=== PATIENT | female | born 2000 | race African-American/Black ===

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

== ENCOUNTER 2019-01-09 13:24 | Emergency (ER) | payer OTHER ==
[~2019-01-09] VITALS: Ht 157.5 cm; Wt 50.8 kg
[2019-01-09 13:47] VITALS: BP 119/73
[2019-01-09] MEDS ORDERED: IV NORMAL SALINE 1000ML BAG 1,000 ML IV ONE (15:45)
[2019-01-09] MEDS ORDERED: ALBU2.5V8 INH (16:05)
[2019-01-09] MEDS ORDERED: METH4TAB2 PO (16:05)
--- NOTE | 2019-01-09 16:06 | PHYS DOC ---
Past Medical History Past Medical History: Asthma Past Surgical History: Other Additional Past Surgical Histo: D&C Alcohol Use: None Drug Use: None Adult General Chief Complaint Chief Complaint: SORE THROAT HPI HPI Patient is a 18 year old female who presents with throat pain, cough, chills, nasal congestion and when she coughs there is a burning sensation for the last 3 days. She states she has not been taking any medications [id number]. Patient states she does have asthma has been using her inhaler more than usual. Review of Systems Review of Systems Constitutional: fever or chills [] Eyes: Denies change in visual acuity, redness, or eye pain [] HENT: nasal congestion or sore throat [] Respiratory: cough or shortness of breath [] Cardiovascular: No additional information not addressed in HPI [] GI: Denies abdominal pain, nausea, vomiting, bloody stools or diarrhea [] : Denies dysuria or hematuria [] Musculoskeletal: Denies back pain or joint pain [] Integument: Denies rash or skin lesions [] Neurologic: Denies headache, focal weakness or sensory changes [] All other systems were reviewed and found to be within normal limits, except as documented in this note. Current Medications Current Medications Current Medications Medications (Trade) Dose Ordered Sig/Kristie Start Time Stop Time Status Last Admin Dose Admin Sodium Chloride 1,000 ml @ 1,000 mls/hr 1X ONCE 01/09/19 15:45 01/09/19 16:44 Cancel Allergies Allergies Allergies Coded Allergies Type Severity Reaction Last Updated Verified No Known Drug Allergies 11/21/18 No Physical Exam Physical Exam Constitutional: Well developed, well nourished, no acute distress, non-toxic appearance. [] HENT: Normocephalic, atraumatic, bilateral external ears normal, oropharynx moist, no oral exudates, nose normal. [] Eyes: PERRLA, EOMI, conjunctiva normal, no discharge. [] Neck: Normal range of motion, no tenderness, supple, no stridor. [] Cardiovascular:Heart rate regular rhythm, no murmur [] Lungs & Thorax: Bilateral breath sounds clear to auscultation [] Abdomen: Bowel sounds normal, soft, no tenderness, no masses, no pulsatile masses. [] Skin: Warm, dry, no erythema, no rash. [] Back: No tenderness, no CVA tenderness. [] Extremities: No tenderness, no cyanosis, no clubbing, ROM intact, no edema. [] Neurologic: Alert and oriented X 3, normal motor function, normal sensory function, no focal deficits noted. [] Psychologic: Affect normal, judgement normal, mood normal. Normal Physical Exam [] Current Patient Data Vital Signs Vital Signs Date Time Temp Pulse Resp B/P (MAP) Pulse Ox O2 Delivery O2 Flow Rate FiO2 01/09/19 13:47 98.5 83 16 119/73 (88) 98 Room Air 98.5 Lab Values Laboratory Tests Test 01/09/19 15:07 01/09/19 15:35 POC Urine HCG, Qualitative Hcg negative (Negative) Influenza Type A Antigen Negative (NEGATIVE) Influenza Type B Antigen Negative (NEGATIVE) EKG EKG [] Radiology/Procedures Radiology/Procedures [] Course & Med Decision Making Course & Med Decision Making Patient is a 18 year old female who presents with throat pain, cough, chills, nasal congestion and when she coughs there is a burning sensation for the last 3 days. She states she has not been taking any medications [id number]. Patient states she does have asthma has been using her inhaler more than usual. Alert and oriented. Speaks in full clear sentences. Throat is pink without exudates or swelling. Bilateral tympanic is pearly white. Lungs are clear to auscultation in all lobes. Patient denies abdominal pain, nausea, vomiting, diarrhea, headache, dizziness. Vital signs within Normal limits and she is afebrile. Rapid strep is negative. Influenza negative. Dragon Disclaimer Dragon Disclaimer This electronic medical record was generated, in whole or in part, using a voice recognition dictation system. Departure Departure Impression: Primary Impression: Cough Additional Impression: Sore throat Disposition: 01 HOME, SELF-CARE Condition: STABLE Referrals: Lanny RICHEY MD (PCP) Patient Instructions: Cough, Adult, Sore Throat Additional Instructions: Follow-up her primary care doctor if not getting better. Take medication as prescribed. Take Tylenol or Ibuprofen for pain or fever every 6 hours. Scripts Albuterol Sulfate (Proair Hfa) 8.5 Gm Hfa.aer.ad 1 PUFF INH PRN Q6HRS PRN for SHORTNESS OF BREATH, #1 INHALER Prov: KIT MARTIN ACADEMIC SPECIALIST 01/09/19 Methylprednisolone (MEDROL) 4 Mg Tab.ds.pk 1 PKG PO UD, #1 PKG Prov: KIT MARTIN APRN 01/09/19 Problem Qualifiers KIT MARTIN APRN Jan 09, 2019 16:06
[2019-01-09 16:20] LABS: INFLUENZA A PATIENT NEGATIVE (NEGATIVE); INFLUENZA B PATIENT NEGATIVE (NEGATIVE)
== END 2019-01-09 16:42 | disposition home or self-care (01) ==
LOC: ER 13:24
DX: J02.9 Acute pharyngitis, unspecified (principal); R05 Cough; R06.02 Shortness of breath; R68.83 Chills (without fever); R20.8 Other disturbances of skin sensation; J45.909 Unspecified asthma, uncomplicated
CPT/HCPCS: 81025; 87070; 87804; 87880; 99283

== ENCOUNTER 2019-03-22 18:16 | Emergency (ER) | payer OTHER ==
[~2019-03-22] VITALS: Ht 157.5 cm; Wt 50.8 kg
[~2019-03-22 18:16] MED LIST changes: +METH4TAB2 PO
[2019-03-22 19:32] LABS: BILIRUBIN,URINE NEGATIVE (NEG); CLARITY,URINE CLEAR; COLOR,URINE YELLOW; NITRITE,URINE NEGATIVE (NEG); PH,URINE 5.5; PROTEIN,URINE NEGATIVE (NEG-TRACE); UROBILINOGEN,URINE 0.2 mg/dL (0.2 mg/dL)
[2019-03-22 19:42] LABS: BACTERIA,URINE MOD /HPF (0-FEW); RBC,URINE OCC /HPF (0-2); SQUAMOUS EPITHELIAL CELL,UR MOD /LPF
[2019-03-22] MEDS ORDERED: METR500T PO (19:54)
[2019-03-22] MEDS ORDERED: CEPH500T PO (19:54)
--- NOTE | 2019-03-22 19:55 | PHYS DOC ---
Past Medical History Past Medical History: Asthma (JEANETTENICKI EVER) Past Surgical History: Other Additional Past Surgical Histo: D&C (JEANETTENICKI PEDIATRIC NURSE PRACTITIONER) Alcohol Use: None Drug Use: None (NICKI REID APRN) Adult General Chief Complaint Chief Complaint: VAGINAL PROBLEM [facility] HPI Patient is a 18 year old female who presents with vaginal discharge for 1-1/2 months. Patient states she has been trying [id number] miconazole inserts with no relief. Denies any chance she is though she states she doesn't use anything for protection (NICKI REID APRN) Review of Systems Review of Systems Constitutional: Denies fever or chills [] Eyes: Denies change in visual acuity, redness, or eye pain [] HENT: Denies nasal congestion or sore throat [] Respiratory: Denies cough or shortness of breath [] Cardiovascular: No additional information not addressed in HPI [] GI: Reports VAGINAL discharge. Denies abdominal pain, nausea, vomiting, bloody stools or diarrhea [] : Denies dysuria or hematuria [] Musculoskeletal: Denies back pain or joint pain [] Integument: Denies rash or skin lesions [] Neurologic: Denies headache, focal weakness or sensory changes [] All other systems were reviewed and found to be within normal limits, except as documented in this note. (NICKI REID APRN) Allergies Allergies Allergies Coded Allergies Type Severity Reaction Last Updated Verified No Known Drug Allergies 11/21/18 No (MARIAMA APARICIO DO) Physical Exam Physical Exam Constitutional: Well developed, well nourished, no acute distress, non-toxic appearance. [] HENT: Normocephalic, atraumatic, bilateral external ears normal, oropharynx mois t, no oral exudates, nose normal. [] Eyes: PERRLA, EOMI, conjunctiva normal, no discharge. [] Neck: Normal range of motion, no tenderness, supple, no stridor. [] Cardiovascular:Heart rate regular rhythm, no murmur [] Lungs & Thorax: Bilateral breath sounds clear to auscultation [] Abdomen: Bowel sounds normal, soft, no tenderness, no masses, no pulsatile masses. [] Pelvic exam External pelvic appears normal, cervix suspicious, closed, no CMT, no adnexal tenderness. Trace amount of white discharge in the vaginal vault. Skin: Warm, dry, no erythema, no rash. [] Back: No tenderness, no CVA tenderness. [] Extremities: No tenderness, no cyanosis, no clubbing, ROM intact, no edema. [] Neurologic: Alert and oriented X 3, normal motor function, normal sensory function, no focal deficits noted. [] Psychologic: Affect normal, judgement normal, mood normal. [] (NICKI REID APRN) Current Patient Data Vital Signs Vital Signs Date Time Temp Pulse Resp B/P (MAP) Pulse Ox O2 Delivery O2 Flow Rate FiO2 03/22/19 20:32 72 14 109/71 (84) 99 Room Air 03/22/19 18:47 98.2 98.2 (MARIAMA APARICIO DO) Lab Values Laboratory Tests Test 03/22/19 18:55 03/22/19 18:57 Urine Collection Type Void Urine Color Yellow Urine Clarity Clear Urine pH 5.5 Urine Specific [place] 1.025 Urine Protein Negative mg/dL (NEG-TRACE) Urine Glucose (UA) Negative mg/dL (NEG) Urine Ketones (Stick) Negative mg/dL (NEG) Urine Blood Negative (NEG) Urine Nitrite Negative (NEG) Urine Bilirubin Negative (NEG) Urine Urobilinogen Dipstick 0.2 mg/dL (0.2 mg/dL) Urine Leukocyte Esterase Small (NEG) Urine RBC Occ /HPF (0-2) Urine WBC 1-4 /HPF (0-4) Urine Squamous Epithelial Cells Mod /LPF Urine Bacteria Mod /HPF (0-FEW) Urine Mucus Marked /LPF POC Urine HCG, Qualitative Hcg positive (Negative) Microbiology 03/22/19 Wet Prep - Final, Complete (MARIAMA APARICIO DO) EKG EKG [] (NICKI REID APRN) Radiology/Procedures Radiology/Procedures [] (NICKI REID APRN) Course & Med Decision Making Course & Med Decision Making Pertinent Labs and Imaging studies reviewed. (See chart for details) This is a 18-year-old female patient presenting to the ED today complaining of vaginal discharge for 1-1/2 months. Positive urine hCG. Wet prep noted for altered elba, urine analysis is noted for small amount of leukocytes. Patient will be discharged on cephalexin and Flagyl. Provided OB for follow-up. (NICKI REID APRN) Dragon Disclaimer Dragon Disclaimer This electronic medical record was generated, in whole or in part, using a voice recognition dictation system. (NICKI REID APRN) Departure Departure Impression: Primary Impression: Urinary tract infection Additional Impressions: Bacterial vaginosis Disposition: HOME, SELF-CARE Condition: STABLE Referrals: NO PCP (PCP) ZULEIMA MORGAN Jr, MD follow up in 1 week Patient Instructions: Bacterial Vaginosis, Urinary Tract Infection Additional Instructions: You were evaluated in the emergency room, your test is positive. You have bacterial vaginosis and urinary tract infection. We put you on antibiotics take them as prescribed. Start Taking vitamins and follow-up with the provided FUSION OPERATOR. Scripts Cephalexin (CEPHALEXIN) 500 Mg Tablet 1 TAB PO BID, #14 TAB Prov: NICKI REID APRN 03/22/19 Metronidazole (FLAGYL) 500 Mg Tablet 1 TAB PO BID, #14 TAB Prov: NICKI REID APRN 03/22/19 Attending Signature Attending Signature I have reviewed the PA/EXHAUST AND MUFFLER FITTER's note and plan of care. I was available for consultation as needed during the patient's visit in the emergency department. I agree with the clinical impression, plan, and disposition. (MARIAMA APARICIO DO) Problem Qualifiers Primary Impression: Urinary tract infection Urinary tract infection type: site unspecified Hematuria presence: without hematuria Qualified Codes: N39.0 - Urinary tract infection, site not specified Additional Impressions: Weeks of gestation: less than 8 weeks Qualified Codes: Z3A.01 - Less than 8 weeks gestation of NICKI REID APRN March 22, 2019 19:54 MARIAMA APARICIO DO Mar 23, 2019 04:01
[2019-03-22 20:32] VITALS: BP 109/71
[2019-03-25 15:13] LABS: GC PROBE Negative (Negative)
== END 2019-03-22 20:32 | disposition home or self-care (01) ==
LOC: ER 18:16
DX: O23.31 Infections of other parts of urinary tract in pregnancy, first trimester (principal); O99.511 Diseases of the respiratory system complicating pregnancy, first trimester; Z3A.01 Less than 8 weeks gestation of pregnancy
CPT/HCPCS: 81001; 81025; 87491; 87591; 99284; Q0111; 99283

== ENCOUNTER 2019-03-29 21:42 | Emergency (ER) | payer OTHER ==
[~2019-03-29] VITALS: Ht 157.5 cm; Wt 51.7 kg
[~2019-03-29 21:42] MED LIST changes: +METR500T PO
[2019-03-29 22:00] VITALS: BP 121/65
--- NOTE | 2019-03-29 23:10 | PHYS DOC ---
Past Medical History Past Medical History: No Pertinent History, Asthma Past Surgical History: Other Additional Past Surgical Histo: D&C Additional Information: non smoker Alcohol Use: None Drug Use: None Adult General Chief Complaint Chief Complaint: VAGINAL PROBLEM HPI HPI Patient is a 18 year old female who states that she has been having vaginal discharge, and itching for a month. The patient was seen here last week and diagnosed with a UTI and Bacterial vaginosis and placed on Flagyl and Keflex. Patient states that the symptoms got better for a couple of days and then started again. The patient states that she is and had her first OB appointment 2 days ago and had STD testing performed at that time. Denies any pain currently. Review of Systems Review of Systems Constitutional: Denies fever or chills [] Eyes: Denies change in visual acuity, redness, or eye pain [] HENT: Denies nasal congestion or sore throat [] Respiratory: Denies cough or shortness of breath [] Cardiovascular: No additional information not addressed in HPI [] GI: Denies abdominal pain, nausea, vomiting, bloody stools or diarrhea [] : Denies dysuria or hematuria Gynecology: Reports Vaginal itching and discharge. Musculoskeletal: Denies back pain or joint pain [] Integument: Denies rash or skin lesions [] Neurologic: Denies headache, focal weakness or sensory changes [] Endocrine: Denies polyuria or polydipsia [] Complete systems were reviewed and found to be within normal limits, except as documented in this note. Allergies Allergies Allergies Coded Allergies Type Severity Reaction Last Updated Verified No Known Drug Allergies 11/21/18 No Physical Exam Physical Exam Constitutional: Well developed, well nourished, no acute distress, non-toxic appearance. [] HENT: Normocephalic, atraumatic, bilateral external ears normal, oropharynx moist, no oral exudates, nose normal. [] Eyes: PERRLA, EOMI, conjunctiva normal, no discharge. [] Neck: Normal range of motion, no tenderness, supple, no stridor. [] Cardiovascular:Heart rate regular rhythm, no murmur [] Lungs & Thorax: Bilateral breath sounds clear to auscultation [] Abdomen: Bowel sounds normal, soft, no tenderness, no masses, no pulsatile masses. [] Skin: Warm, dry, no erythema, no rash. [] Back: No tenderness, no CVA tenderness. [] Extremities: No tenderness, no cyanosis, no clubbing, ROM intact, no edema. [] Neurologic: Alert and oriented X 3, normal motor function, normal sensory function, no focal deficits noted. [] Psychologic: Affect normal, judgement normal, mood normal. [] Pelvic Exam: External exam is normal and without rash, No CMT, OS is closed, small amounts of white discharge, uterus NTTP, No adnexal masses or tenderness noted. Current Patient Data Vital Signs Vital Signs Date Time Temp Pulse Resp B/P (MAP) Pulse Ox O2 Delivery O2 Flow Rate FiO2 03/29/19 22:00 98.4 86 16 121/65 (83) 100 Room Air 98.4 Lab Values Laboratory Tests Test 03/29/19 23:25 Urine Collection Type Unknown Urine Color Ramila Urine Clarity Turbid Urine pH 6.0 Urine Specific [place] >=1.030 Urine Protein Negative mg/dL (NEG-TRACE) Urine Glucose (UA) Negative mg/dL (NEG) Urine Ketones (Stick) Trace mg/dL (NEG) Urine Blood Negative (NEG) Urine Nitrite Negative (NEG) Urine Bilirubin Small (NEG) Urine Urobilinogen Dipstick 0.2 mg/dL (0.2 mg/dL) Urine Leukocyte Esterase Moderate (NEG) Urine RBC 0 /HPF (0-2) Urine WBC 1-4 /HPF (0-4) Urine Squamous Epithelial Cells Mod /LPF Urine Bacteria Few /HPF (0-FEW) Urine Mucus Mod /LPF EKG EKG [] Radiology/Procedures Radiology/Procedures [] Course & Med Decision Making Course & Med Decision Making Pertinent Labs and Imaging studies reviewed. (See chart for details) Will get urine sample, perform pelvic exam. Patient is agreeable. Will not get additional STD testing as she has testing pending at her BOX OFFICE MANAGER. Will place on Clotrimazole for Vulvovaginal Candidiasis. Will write paper script for Clotrimazole 1% Cream 5 grams intravaginally daily for 7 days. Patient is agreeable. Urine shows moderate leukocytes. Was on Keflex. Will put her on Macrobid. Patient is agreeable. Dragon Disclaimer Dragon Disclaimer This electronic medical record was generated, in whole or in part, using a voice recognition dictation system. Departure Departure Impression: Primary Impression: Vulvovaginal candidiasis Additional Impression: Urinary tract infection Disposition: HOME, SELF-CARE Condition: STABLE Referrals: NO PCP (PCP) Patient Instructions: Candidal Vulvovaginitis, [id number], - Urinary Tract Infection Additional Instructions: Follow up with your BOX OFFICE MANAGER as needed. Return to ER as needed. Take medication per label instructions. Scripts Nitrofurantoin Monohyd/M-Cryst (MACROBID 100 MG CAPSULE) 100 Mg Capsule 1 CAP PO BID for 7 Days, #14 CAP Prov: MARIAMA RUSSO APRN 03/29/19 Problem Qualifiers Additional Impression: Urinary tract infection Urinary tract infection type: acute cystitis Hematuria presence: without hematuria Qualified Codes: N30.00 - Acute cystitis without hematuria MARIAMA RUSSO APRN Mar 29, 2019 23:10
[2019-03-29 23:31] LABS: BILIRUBIN,URINE SMALL (NEG); CLARITY,URINE TURBID; COLOR,URINE AMBER; NITRITE,URINE NEGATIVE (NEG); PROTEIN,URINE NEGATIVE (NEG-TRACE); UROBILINOGEN,URINE 0.2 mg/dL (0.2 mg/dL)
[2019-03-29 23:34] LABS: SQUAMOUS EPITHELIAL CELL,UR MOD /LPF
[2019-03-29 23:36] LABS: BACTERIA,URINE FEW /HPF (0-FEW); RBC,URINE 0 /HPF (0-2)
[2019-03-29] MEDS ORDERED: NITR100C62 PO (23:47)
== END 2019-03-29 23:55 | disposition home or self-care (01) ==
LOC: ER 21:42
DX: O23.11 Infections of bladder in pregnancy, first trimester (principal); O98.811 Other maternal infectious and parasitic diseases complicating pregnancy, first trimester; B37.41 Candidal cystitis and urethritis; O99.511 Diseases of the respiratory system complicating pregnancy, first trimester; J45.909 Unspecified asthma, uncomplicated; Z3A.01 Less than 8 weeks gestation of pregnancy
CPT/HCPCS: 81001; 99283

== ENCOUNTER 2019-04-14 21:09 | Emergency (ER) | payer OTHER ==
[~2019-04-14] VITALS: Ht 157.5 cm; Wt 51.7 kg
[~2019-04-14 21:09] MED LIST changes: +NITR100C62 PO
[2019-04-14 21:38] VITALS: BP 119/67
[2019-04-14 21:47] LABS: BILIRUBIN,URINE NEGATIVE (NEG); CLARITY,URINE CLOUDY; COLOR,URINE YELLOW; NITRITE,URINE NEGATIVE (NEG); PROTEIN,URINE 100 mg/dL (NEG-TRACE)
[2019-04-14 22:00] LABS: BACTERIA,URINE 0 /HPF (0-FEW); RBC,URINE >40 /HPF (0-2); SQUAMOUS EPITHELIAL CELL,UR FEW /LPF; WBC,URINE TNTC /HPF (0-4)
--- NOTE | 2019-04-14 23:17 | PHYS DOC ---
Past Medical History Past Medical History: Asthma, UTI Past Surgical History: Other Additional Past Surgical Histo: D&C Alcohol Use: None Drug Use: None Adult General Chief Complaint Chief Complaint: PELVIC PAIN HPI HPI 18-year-old female presents to ER for complaints of dysuria. Patient states she is 7 weeks 2 days 2 para 0. She reports she had appointment with Dr. Villalobos on Monday. Patient states today she started having dysuria. She denies any clots or tissue. Currently she denies abdominal pain, back pain, or nausea. She reports appetite has been regular denies any vomiting or diarrhea episodes. She denies fever. Review of Systems Review of Systems Constitutional: Denies fever or chills [] Eyes: Denies change in visual acuity, redness, or eye pain [] HENT: Denies nasal congestion or sore throat [] Respiratory: Denies cough or shortness of breath [] Cardiovascular: No additional information not addressed in HPI [] GI: Denies abdominal pain, nausea, vomiting, bloody stools or diarrhea [] : Reports dysuria w/blood on toilet paper after she wiped tonight- denies clots/tissue Musculoskeletal: Denies back pain or joint pain [] Integument: Denies rash or skin lesions [] Neurologic: Denies headache, focal weakness or sensory changes [] Endocrine: Denies polyuria or polydipsia [] All other systems were reviewed and found to be within normal limits, except as documented in this note. Current Medications Current Medications Current Medications Medications (Trade) Dose Ordered Sig/Kristie Start Time Stop Time Status Last Admin Dose Admin Cephalexin HCl (Keflex) 500 mg 1X ONCE 04/15/19 02:00 04/15/19 02:01 DC 04/15/19 02:02 500 MG Allergies Allergies Allergies Coded Allergies Type Severity Reaction Last Updated Verified No Known Drug Allergies 11/21/18 No Physical Exam Physical Exam Constitutional: Well developed, well nourished, no acute distress, non-toxic appearance. [] HENT: Normocephalic, atraumatic, oropharynx moist, nose normal. [] Eyes: Pupils equal, conjunctiva normal, no discharge. [] Neck: Normal range of motion, no tenderness, supple, no stridor. [] Cardiovascular: Heart rate regular rhythm, no murmur [] Lungs & Thorax: Bilateral breath sounds clear to auscultation- resp. equal/nonlabored Abdomen: Bowel sounds normal, soft- no distention/rigidity, no tenderness, no masses, no pulsatile masses. [] Skin: Warm, dry, no erythema, no rash. [] Back: No tenderness, no CVA tenderness. [] Extremities: No tenderness, no cyanosis, no clubbing, ROM intact, no edema. [] Neurologic: Alert and oriented X 3, normal motor function, normal sensory function, no focal deficits noted. [] Psychologic: Affect normal, judgement normal, mood normal. [] Current Patient Data Vital Signs Vital Signs Date Time Temp Pulse Resp B/P (MAP) Pulse Ox O2 Delivery O2 Flow Rate FiO2 04/14/19 21:38 98.6 87 16 119/67 (84) 100 Room Air 98.6 Lab Values Laboratory Tests Test 04/14/19 21:12 04/15/19 00:45 Urine Collection Type Unknown Urine Color Yellow Urine Clarity Cloudy Urine pH 7.0 Urine Specific [place] 1.025 Urine Protein 100 mg/dL (NEG-TRACE) Urine Glucose (UA) Negative mg/dL (NEG) Urine Ketones (Stick) Negative mg/dL (NEG) Urine Blood Large (NEG) Urine Nitrite Negative (NEG) Urine Bilirubin Negative (NEG) Urine Urobilinogen Dipstick 1.0 mg/dL (0.2 mg/dL) Urine Leukocyte Esterase Large (NEG) Urine RBC >40 /HPF (0-2) Urine WBC Tntc /HPF (0-4) Urine Squamous Epithelial Cells Few /LPF Urine Bacteria 0 /HPF (0-FEW) White Blood Count 6.5 x10^3/uL (4.0-11.0) Red Blood Count 4.56 x10^6/uL (3.50-5.40) Hemoglobin 12.9 g/dL (12.0-15.5) Hematocrit 38.1 % (36.0-47.0) Mean Corpuscular Volume 84 fL (79-100) Mean Corpuscular Hemoglobin 28 pg (25-35) Mean Corpuscular Hemoglobin Concent 34 g/dL (31-37) Red Cell Distribution Width 17.0 % (11.5-14.5) H Platelet Count 239 x10^3/uL (140-400) Neutrophils (%) (Auto) 58 % (31-73) Lymphocytes (%) (Auto) 30 % (24-48) Monocytes (%) (Auto) 8 % (0-9) Eosinophils (%) (Auto) 3 % (0-3) Basophils (%) (Auto) 1 % (0-3) Neutrophils # (Auto) 3.8 x10^3uL (1.8-7.7) Lymphocytes # (Auto) 2.0 x10^3/uL (1.0-4.8) Monocytes # (Auto) 0.5 x10^3/uL (0.0-1.1) Eosinophils # (Auto) 0.2 x10^3/uL (0.0-0.7) Basophils # (Auto) 0.0 x10^3/uL (0.0-0.2) Maternal Serum HCG Beta Subunit 86890 mIU/mL (0-5) H Sodium Level 136 mmol/L (136-145) Potassium Level 3.6 mmol/L (3.5-5.1) Chloride Level 103 mmol/L (98-107) Carbon Dioxide Level 25 mmol/L (21-32) Anion Gap 8 (6-14) Blood Urea Nitrogen 6 mg/dL (7-20) L Creatinine 0.6 mg/dL (0.6-1.0) Estimated GFR (Cockcroft-Gault) 155.8 Glucose Level 93 mg/dL (70-99) Calcium Level 8.9 mg/dL (8.5-10.1) Laboratory Tests 04/15/19 00:45 Laboratory Tests 04/15/19 00:45 EKG EKG [] Radiology/Procedures Radiology/Procedures Pelvic Exam: KAT Wood Turner present 0040 External Genitalia: Normal Skin- no rash/lesions Speculum: Normal vaginal mucosa, white thin vaginal discharge in vaginal vault- cervical os closed. No blood/clots/tissue in vault Course & Med Decision Making Course & Med Decision Making Pertinent Labs and Imaging studies reviewed. (See chart for details) On 11/21/18 patient had blood type obtained showing her to be AB neg. was discussed with patient and his she reported vaginal bleeding so will order Rhogham. Was discussed with patient she does not recall having Rhogham. RN at bedside to obtain labs and she is calling in lab to obtain T&C for Rhogham. 0150: Called [facility] and there was a miscommunication and pt's T&C didn't get drawn as of yet. This was discussed with patient- she is wanting to be discharged from the hospital without further observation denying any vaginal bleeding since ultrasound or pelvic. Patient had no visible blood on pelvic exam and cervical os was closed. She is denying any symptoms. She is nontoxic in appearance. She plans to call Dr. Villalobos's office in the morning and follow-up with his office stating she would have them administer Rhogham. Lab results were discussed with pt- [place] [id number]. H&H stable. UA with infection and lg blood- this was discussed with her. Dose of Keflex was provided and Rx will be provided with d/c paperwork. Education provided on signs and symptoms to return to ER. Discharge instructions were discussed. Pt advised on strict pelvic rest. Dragon Disclaimer Dragon Disclaimer This electronic medical record was generated, in whole or in part, using a voice recognition dictation system. Departure Departure Impression: Primary Impression: Urinary tract infection Additional Impression: Threatened miscarriage in early Disposition: 01 HOME, SELF-CARE Condition: STABLE Referrals: Lanny RICHEY MD (PCP) Patient Instructions: Pelvic Rest, Threatened Miscarriage, Urinary Tract Infection Additional Instructions: It is very important for you to follow-up with Dr. Villalobos's office in the morning as you didn't want to wait in the Emergency Department for the Rhogham. Drink plenty of fluids. Strict pelvic rest do not insert anything into the vagina. Scripts Cephalexin (KEFLEX) 500 Mg Capsule 1 CAP PO BID, #14 CAP 0 Refills Prov: AVNI QIU APRN 04/15/19 Problem Qualifiers AVNI QIU APRN Apr 14, 2019 23:16
--- NOTE | 2019-04-15 00:29 | RAD ---
Obstetric pelvic ultrasound 04/15/2019 INDICATION: Pelvic pain and bleeding. 7 weeks 2 day . COMPARISON: None available. TECHNIQUE: Sonographic evaluation of the pelvis was performed utilizing grayscale and color Doppler. Transabdominal and transvaginal imaging was performed. Spectral waveform analysis was utilized for interrogation of the ovaries. FINDINGS: Uterus measures 8.3 x 6.1 x 4.2 cm. Uterus is retroverted. A single intrauterine gestation is identified with crown-rump length measuring 1.3 cm compatible with a gestational age of 7 weeks and 4 days. heart tones measure 162 bpm. Yolk sac and gestational sac are visualized. There is a small subchorionic hemorrhage. Right ovary measures 2.3 x 1.3 x 1.2 cm. Left ovary measures 3.7 x 2.1 x 2.0 cm. Arterial and venous waveform identified bilaterally at the time of imaging. Corpus luteal cyst is identified in the left ovary measuring 2.1 x 1.5 x 1.5 cm. There is no free fluid within the pelvis. IMPRESSION: 1. Single viable intrauterine gestation is identified with crown-rump length compatible with a gestational age of 7 weeks 4 days which is concordant with provided gestational age. heart tones measure 162 bpm. Small subchorionic hemorrhage. If there is persistent clinical concern, short-term follow-up beta hCG and pelvic ultrasound may be of benefit. 2. Corpus luteal cyst is identified in the left ovary measuring 2.1 cm. Electronically signed by: Emily Grewal MD (04/15/2019 12:26 AM) [facility]
[2019-04-15 00:55] LABS: BASO % 1 % (0-3); EOS # 0.2 x10^3/uL (0.0-0.7); EOS % 3 % (0-3); HEMATOCRIT 38.1 % (36.0-47.0); HEMOGLOBIN 12.9 g/dL (12.0-15.5); LYMPH % 30 % (24-48); MEAN CORPUSCULAR HEMOGLOBIN 28 pg (25-35); MEAN CORPUSCULAR HGB CONC 34 g/dL (31-37); MEAN CORPUSCULAR VOLUME 84 fL (79-100); MONO # 0.5 x10^3/uL (0.0-1.1); MONO % 8 % (0-9); NEUT # 3.8 x10^3uL (1.8-7.7); NEUT % 58 % (31-73); PLATELET COUNT 239 x10^3/uL (140-400); RED BLOOD COUNT 4.56 x10^6/uL (3.50-5.40); WHITE BLOOD COUNT 6.5 x10^3/uL (4.0-11.0)
[2019-04-15 01:04] LABS: CALCIUM 8.9 mg/dL (8.5-10.1); CREATININE 0.6 mg/dL (0.6-1.0); GFR 155.8; POTASSIUM 3.6 mmol/L (3.5-5.1)
[2019-04-15] MEDS: CEPHALEXIN 250 MG CAPSULE. PO ONE (02:02)
[2019-04-15] MEDS ORDERED: CEPH-264 PO (02:13)
== END 2019-04-15 02:18 | disposition home or self-care (01) ==
LOC: ER 21:09
DX: O20.0 Threatened abortion (principal); O23.41 Unspecified infection of urinary tract in pregnancy, first trimester; O99.511 Diseases of the respiratory system complicating pregnancy, first trimester; J45.909 Unspecified asthma, uncomplicated; Z3A.01 Less than 8 weeks gestation of pregnancy
CPT/HCPCS: 36415; 76801; 76817; 80048; 81001; 84702; 85025; 87086; 99285-25

== ENCOUNTER 2019-10-08 16:47 | Observation (INO) | payer MEDICAID ==
[~2019-10-08 16:47] MED LIST changes: +CEPH-264 PO
[2019-10-08] MEDS ORDERED: IV RINGERS,LACTATED 1000ML 1,000 ML IV SCH (16:59)
--- NOTE | 2019-10-09 07:57 | RAD ---
Biophysical profile: Clinical indications: Oligohydramnios. Findings: A single intrauterine is present in the cephalic position. heart rate is 158. breathing movements: 2. motion: 2. tone: 2. Amniotic fluid volume: 0. Therefore, the biophysical profile score is 6 out of 8. Cervical length-not visualized. CARLOS using the 4 quadrant method is 4.5 cm. Impression: Biophysical profile score is 6 out of 8. Oligohydramnios. Electronically signed by: Luis Miguel Toure MD (10/09/2019 7:53 AM) [facility]
== END 2019-10-08 18:15 | disposition home or self-care (01) ==
LOC: 3 SO LND 16:47
PROVIDERS: ADMIT Obstetrics & Gynecology; ATTEND Obstetrics & Gynecology
DX: O36.5930 Maternal care for other known or suspected poor fetal growth, third trimester, not applicable or unspecified (principal); Z3A.32 32 weeks gestation of pregnancy
CPT/HCPCS: 76819; G0378; G0379; 59025

== ENCOUNTER 2019-10-11 19:35 | Observation (INO) | payer MEDICAID ==
[2019-10-11] MEDS ORDERED: MAG HYDROX/ALUMINUM HYD/SIMETH 30 ML ORAL.SUSP PO PRN (19:45)
[2019-10-11] MEDS ORDERED: IV RINGERS,LACTATED 1000ML 1,000 ML IV PRN (19:45)
[2019-10-11] MEDS ORDERED: ACETAMINOPHEN 325 MG TABLET. PO PRN (19:45)
--- NOTE | 2019-10-12 09:56 | PDOC1 ---
OB - History Hx of Present Care: Good Care Ultrasounds: Abnormal US findings (IUGR and BPP 6/10 yesterday) Obstetrical Complications: Growth Restriction Medical Complications: None Past Family/Social History * Past Medical, Surgical, Family and Obstetric Histories reviewed from chart. Rubella: Immune RPR/VDRL: Negative GBS Status: Unknown HBsAG: Negative OB - Chief Complaint & HPI Date of Admission: Date of Admission: Oct 11, 2019 at 19:35 Chief Complaint/History : 1 Para: 0 EGA: 33 Reason for admission: observation Admission Nurse Assessment Rev: Yes OB - Admission Exam Physical Exam HEENT: Normal Heart: Regular Rate Lungs: Clear, Equal Abdomen: Gravid, Non tender, Soft Extremities: Edema Reflexes: Normal Cervical Dilatation: None Effacement: 0% Station: Ballotable Membranes: Intact Heart Rate: Normal Accelerations: Accelerations Present Contractions on Admission: None Text A: 33 wks IUP Previous BPP 6/10 P: Observation for NST and repeat BPP. ZULEIMA MORGAN Jr, MD Oct 12, 2019 09:56
--- NOTE | 2019-10-12 10:52 | RAD ---
Examination: Ultrasound biophysical profile HISTORY: History of failed biophysical profile COMPARISON: 10/08/2019. FINDINGS: Single living intrauterine identified with heart rate of 153 bpm. motion 2 /2 tone 2 / 2 Amniotic fluid volume 2/2 breathing movements 0/2 Amniotic fluid index is 7 cm. IMPRESSION: 1. Biophysical profile score is 6 out of 8. Amniotic fluid index 7 cm. Electronically signed by: Antolin Graham MD (10/12/2019 10:49 AM) [facility]
== END 2019-10-12 11:05 | disposition home or self-care (01) ==
LOC: 3 SO LND 19:35
PROVIDERS: ADMIT Obstetrics & Gynecology; ATTEND Obstetrics & Gynecology
DX: O36.5930 Maternal care for other known or suspected poor fetal growth, third trimester, not applicable or unspecified (principal); Z3A.33 33 weeks gestation of pregnancy
CPT/HCPCS: 76819; G0378; G0379

== ENCOUNTER 2019-10-15 10:50 | Observation (INO) | payer MEDICAID ==
[2019-10-15] MEDS ORDERED: IV RINGERS,LACTATED 1000ML 1,000 ML IV SCH (11:32)
[2019-10-15] MEDS ORDERED: ACETAMINOPHEN 325 MG TABLET. PO PRN (11:45)
[2019-10-15] MEDS ORDERED: ONDANSETRON PF 4 MG/2 ML VIAL. IV PRN (11:45)
--- NOTE | 2019-10-15 12:24 | RAD ---
EXAM: OBSTETRIC ULTRASOUND WITH BIOPHYSICAL PROFILE. HISTORY: Intrauterine growth restriction. COMPARISON: None. FINDINGS: Sonographic evaluation of the uterus, fetus and maternal pelvis was performed with biophysical profile. There is a single fetus in vertex presentation. heart rate is 143 bpm. The placenta is anterior. There is no evidence of placenta previa. Amniotic fluid volume appears normal with amniotic fluid index 6.7 cm. Biophysical profile score: 8/8. breathin. tone: 2. movement: 2. Amniotic fluid volume: 2. The maternal adnexa are obscured by positioning currently. IMPRESSION: 1. Biophysical profile score: 8/8. 2. Single fetus in vertex presentation. heart rate 143 bpm. Electronically signed by: Sarah Sullivan MD (10/15/2019 12:21 PM) [facility]
== END 2019-10-15 13:38 | disposition home or self-care (01) ==
LOC: 3 SO LND 10:50
PROVIDERS: ADMIT Obstetrics & Gynecology; ATTEND Obstetrics & Gynecology
DX: O36.5930 Maternal care for other known or suspected poor fetal growth, third trimester, not applicable or unspecified (principal); Z3A.33 33 weeks gestation of pregnancy
CPT/HCPCS: 76819; G0378; G0379; 59025

== ENCOUNTER 2019-10-22 11:01 | Observation (INO) | payer MEDICAID ==
[2019-10-22] MEDS ORDERED: IV RINGERS,LACTATED 500ML 500 ML IV PRN (11:45)
--- NOTE | 2019-10-22 14:37 | RAD ---
Examination: BIOPHYS PROFILE W/O NON STRESS History: Intrauterine growth retardation Comparison/Correlation: 10/15/2019 biophysical profile ultrasound Findings: Biophysical profile score for breathing movements, motion, tone, and amniotic fluid volume are each 2/2. Placenta is at the anterior maternal right aspect. Cephalic lie of the fetus is evident. Amniotic fluid index is 7.5. Heart rate is 157 bpm. Impression: Biophysical profile score of 8/8. Electronically signed by: Carlos Robb MD (10/22/2019 2:33 PM) [facility]
== END 2019-10-22 13:40 | disposition home or self-care (01) ==
LOC: 3 SO LND 11:01
PROVIDERS: ADMIT Obstetrics & Gynecology; ATTEND Obstetrics & Gynecology
DX: O36.5930 Maternal care for other known or suspected poor fetal growth, third trimester, not applicable or unspecified (principal); Z3A.34 34 weeks gestation of pregnancy
CPT/HCPCS: 76819; G0378; G0379; 59025

== ENCOUNTER 2019-10-23 21:51 | Observation (INO) | payer MEDICAID | END 2019-10-24 01:21 | disposition home or self-care (01) | LOC: 3 SO LND 21:51 | PROVIDERS: ADMIT Obstetrics & Gynecology; ATTEND Obstetrics & Gynecology | DX: O36.8130 Decreased fetal movements, third trimester, not applicable or unspecified (principal); Z3A.34 34 weeks gestation of pregnancy | CPT/HCPCS: G0378; G0379; 59025 ==

== ENCOUNTER 2020-08-09 20:23 | Emergency (ER) | payer MEDICAID ==
[~2020-08-09] VITALS: Ht 157.5 cm; Wt 50.0 kg
[~2020-08-09 20:23] MED LIST changes: +ACET-704 PO; +DOCU-153 PO; +IBUP-1027 PO
[2020-08-09 20:49] VITALS: BP 113/68
[2020-08-09 21:13] LABS: BILIRUBIN,URINE NEGATIVE (NEG); CLARITY,URINE CLEAR; COLOR,URINE YELLOW; NITRITE,URINE NEGATIVE (NEG); PH,URINE 7.5 (<5.0-8.0); PROTEIN,URINE NEGATIVE (NEG-TRACE)
[2020-08-09 21:18] LABS: BACTERIA,URINE MODERATE /HPF (0-FEW); RBC,URINE RARE /HPF (0-2); WBC,URINE RARE /HPF (0-4)
--- NOTE | 2020-08-09 21:46 | PHYS DOC ---
Past Medical History Past Medical History: Asthma, UTI Past Surgical History: , Other Additional Past Surgical Histo: D&C Smoking Status: Never Smoker Alcohol Use: None Drug Use: None General Adult EDM: Chief Complaint: MULTIPLE COMPLAINTS HPI: HPI: Patient is a 19 year old female with is a1 with lmp sept 6th presents for evaluation of Clear vaginal discharge and right sided rib pain. Patient states 2 days ago she had a side clear discharge and felt as if she peed on herself. Since patient states she has had episodes of clear spotting. She denies any blood or associated pain. She denies any urinary frequency or urgency. Patient states she has not been sexually active since finding out . She states she is not concerned about an STD. Patient also complains of 1 day history of right sided rib pain. Patient denies any injury. Pain is located lateral right rib-- pain is reproducible to palpation. Review of Systems: Review of Systems: Constitutional: Denies fever or chills. [] Eyes: Denies change in visual acuity. [] HENT: Denies nasal congestion or sore throat. [] Respiratory: Denies cough or shortness of breath. [] Cardiovascular: Denies chest pain or edema. [] GI: Denies abdominal pain, nausea, vomiting, bloody stools or diarrhea. [] : Denies dysuria. []positive positive vaginal discharge Musculoskeletal: Denies back pain or joint pain. [] Integument: Denies rash. [] Neurologic: Denies headache, focal weakness or sensory changes. [] Endocrine: Denies polyuria or polydipsia. [] Lymphatic: Denies swollen glands. [] Psychiatric: Denies depression or anxiety. [] Heart Score: Risk Factors: Risk Factors: DM, Current or recent (<one month) smoker, HTN, HLP, family history of CAD, obesity. Risk Scores: Score 0 - 3: 2.5% MACE over next 6 weeks - Discharge Home Score 4 - 6: 20.3% MACE over next 6 weeks - Admit for Clinical Observation Score 7 - 10: 72.7% MACE over next 6 weeks - Early Invasive Strategies Allergies: Allergies: Allergies Coded Allergies Type Severity Reaction Last Updated Verified No Known Drug Allergies 11/21/18 No Physical Exam: PE: Constitutional: Well developed, well nourished, no acute distress, non-toxic appearance. [] HENT: Normocephalic, atraumatic, bilateral external ears normal, oropharynx moist, no oral exudates, nose normal. [] Eyes: PERRLA, EOMI, conjunctiva normal, no discharge. [] Neck: Normal range of motion, no tenderness, supple, no stridor. [] Cardiovascular:Heart rate regular rhythm, no murmur [] Lungs & Thorax: Bilateral breath sounds clear to auscultation [] Abdomen: Bowel sounds normal, soft, no tenderness, no masses, no pulsatile masses. [] Skin: Warm, dry, no erythema, no rash. [] Back: No tenderness, no CVA tenderness. [] Extremities: No tenderness, no cyanosis, no clubbing, ROM intact, no edema. [] Neurologic: Alert and oriented X 3, normal motor function, normal sensory function, no focal deficits noted. [] Psychologic: Affect normal, judgement normal, mood normal. [] Current Patient Data: Labs: Laboratory Tests Test 08/09/20 20:32 08/09/20 20:40 Urine Collection Type Void Urine Color Yellow Urine Clarity Clear Urine pH 7.5 (<5.0-8.0) Urine Specific [place] >=1.030 (1.000-1.030) Urine Protein Negative mg/dL (NEG-TRACE) Urine Glucose (UA) Negative mg/dL (NEG) Urine Ketones (Stick) Negative mg/dL (NEG) Urine Blood Negative (NEG) Urine Nitrite Negative (NEG) Urine Bilirubin Negative (NEG) Urine Urobilinogen Dipstick 1.0 mg/dL (0.2 mg/dL) Urine Leukocyte Esterase Negative (NEG) Urine RBC Rare /HPF (0-2) Urine WBC Rare /HPF (0-4) Urine Squamous Epithelial Cells Many /LPF Urine Bacteria Moderate /HPF (0-FEW) Urine Mucus Mod /LPF POC Urine HCG, Qualitative Hcg positive (Negative) Vital Signs: Vital Signs Date Time Temp Pulse Resp B/P (MAP) Pulse Ox O2 Delivery O2 Flow Rate FiO2 08/09/20 20:49 98.0 83 16 113/68 (83) 99 Room Air 98.0 EKG: EKG: [] Radiology/Procedures: Radiology/Procedures: [] Course & Med Decision Making: Course & Med Decision Making Pertinent Labs and Imaging studies reviewed. (See chart for details) []ua not consistent with uti wet prep no clue cells. Will discharge home with pnv. patient can take tylenol for pain patient to follow up with her ob. Adolfo Disclaimer: Adolfo Disclaimer: This electronic medical record was generated, in whole or in part, using a voice recognition dictation system. Departure Departure Impression: Primary Impression: Additional Impressions: Vaginal discharge Rib pain on right side Disposition: 01 DC HOME SELF CARE/HOMELESS Condition: STABLE Referrals: NO PCP (PCP) Patient Instructions: Chest Wall Pain, Scripts Vit37/Iron/Folic Acid (PRENATA CHEWABLE TABLET) 1 Each Tab.chew 1 TAB PO DAILY for 30 Days, #30 TAB 0 Refills Prov: BERNADETTE MINA DO 08/09/20 BERNADETTE MINA DO Aug 09, 2020 21:46
[2020-08-09] MEDS ORDERED: PREN1TAB60 PO (23:04)
[2020-08-11 18:09] LABS: GC PROBE Negative (Negative)
== END 2020-08-09 23:15 | disposition home or self-care (01) ==
LOC: ER 20:23
DX: O26.891 Other specified pregnancy related conditions, first trimester (principal); N89.8 Other specified noninflammatory disorders of vagina; R07.81 Pleurodynia; J45.909 Unspecified asthma, uncomplicated; Z98.890 Other specified postprocedural states; Z3A.01 Less than 8 weeks gestation of pregnancy
CPT/HCPCS: 81001; 81025; 87086; 87491; 87591; 99283

== ENCOUNTER 2020-08-14 19:29 | Emergency (ER) | payer MEDICAID ==
[~2020-08-14 19:29] MED LIST changes: +PREN1TAB60 PO
== END 2020-08-14 20:02 | disposition left against medical advice (07) ==
LOC: ER 19:29
DX: R10.9 Unspecified abdominal pain (principal); Z53.21 Procedure and treatment not carried out due to patient leaving prior to being seen by health care provider

== ENCOUNTER 2020-09-13 23:27 | Emergency (ER) | payer MEDICAID ==
[~2020-09-13] VITALS: Ht 157.5 cm; Wt 56.7 kg
--- NOTE | 2020-09-14 00:34 | ED.ADGEN ---
Past Medical History Past Medical History: Asthma Past Surgical History: , Other Additional Past Surgical Histo: d and c Smoking Status: Never Smoker Alcohol Use: None Drug Use: None General Adult EDM: Chief Complaint: GI PROBLEM HPI: HPI: Patient is a 20-year-old female who presents to the emergency room complaining of diarrhea, generalized weakness, lower abdominal cramping that started last night. Patient had an ultrasound which showed an 11-week healthy fetus on Monday. She denies any vaginal bleeding or discharge. She denies any dysuria, fever, chills, sweats, vomiting, cough, shortness of breath, change in taste, change of smell. She states that she has had decreased appetite due to nausea. She feels like she is dehydrated which is why she came to the emergency room. Review of Systems: Review of Systems: Complete ROS is negative unless otherwise documented in HPI Current Medications: Current Medications Medications (Trade) Dose Ordered Sig/Kristie Start Time Stop Time Status Last Admin Dose Admin Acetaminophen (Tylenol) 1,000 mg 1X ONCE 09/14/20 02:30 09/14/20 02:31 DC 09/14/20 02:03 1,000 MG Ondansetron HCl (Zofran) 4 mg 1X ONCE 09/14/20 01:00 09/14/20 01:01 DC 09/14/20 00:52 4 MG Sodium Chloride 1,000 ml @ 1,000 mls/hr 1X ONCE 09/14/20 02:00 09/14/20 02:59 DC 09/14/20 01:57 1,000 MLS/HR Allergies: Allergies: Allergies Coded Allergies Type Severity Reaction Last Updated Verified No Known Drug Allergies 11/21/18 No Physical Exam: PE: General: Awake, alert, NAD. Well Nourished, well hydrated. Cooperative HEENT: Atraumatic, EOMI, PERRL, airway patent, moist oral mucosa Neck: Supple, trachea midline Respiratory: CTA bilaterally, normal effort, no wheezing/crackles CV: RRR, no murmur, cap refill <2 GI: Soft, nondistended, nontender, no masses MSK: No obvious deformities Skin: Warm, dry, intact Neuro: A&O x3, speech NL, sensory and motor grossly intact, no focal deficits Psych: Normal affect, normal mood, not suicidal or homicidal Current Patient Data: Labs: Laboratory Tests Test 09/14/20 00:25 09/14/20 00:45 Urine Collection Type Unknown Urine Color Yellow Urine Clarity Clear Urine pH 6.0 (<5.0-8.0) Urine Specific [place] >=1.030 (1.000-1.030) Urine Protein 30 mg/dL (NEG-TRACE) Urine Glucose (UA) Negative mg/dL (NEG) Urine Ketones (Stick) >=80 mg/dL (NEG) Urine Blood Negative (NEG) Urine Nitrite Negative (NEG) Urine Bilirubin Negative (NEG) Urine Urobilinogen Dipstick 0.2 mg/dL (0.2 mg/dL) Urine Leukocyte Esterase Small (NEG) Urine RBC 0 /HPF (0-2) Urine WBC 5-10 /HPF (0-4) Urine Squamous Epithelial Cells Many /LPF Urine Bacteria Many /HPF (0-FEW) Urine Mucus Marked /LPF POC Urine HCG, Qualitative Hcg positive (Negative) White Blood Count 6.8 x10^3/uL (4.0-11.0) Red Blood Count 4.08 x10^6/uL (3.50-5.40) Hemoglobin 11.7 g/dL (12.0-15.5) L Hematocrit 34.2 % (36.0-47.0) L Mean Corpuscular Volume 84 fL (79-100) Mean Corpuscular Hemoglobin 29 pg (25-35) Mean Corpuscular Hemoglobin Concent 34 g/dL (31-37) Red Cell Distribution Width 15.9 % (11.5-14.5) H Platelet Count 197 x10^3/uL (140-400) Neutrophils (%) (Auto) 89 % (31-73) H Lymphocytes (%) (Auto) 6 % (24-48) L Monocytes (%) (Auto) 4 % (0-9) Eosinophils (%) (Auto) 0 % (0-3) Basophils (%) (Auto) 0 % (0-3) Neutrophils # (Auto) 6.1 x10^3/uL (1.8-7.7) Lymphocytes # (Auto) 0.4 x10^3/uL (1.0-4.8) L Monocytes # (Auto) 0.3 x10^3/uL (0.0-1.1) Eosinophils # (Auto) 0.0 x10^3/uL (0.0-0.7) Basophils # (Auto) 0.0 x10^3/uL (0.0-0.2) Platelet Estimate Pending Sodium Level 133 mmol/L (136-145) L Potassium Level 4.0 mmol/L (3.5-5.1) Chloride Level 100 mmol/L (98-107) Carbon Dioxide Level 20 mmol/L (21-32) L Anion Gap 13 (6-14) Blood Urea Nitrogen 6 mg/dL (7-20) L Creatinine 0.3 mg/dL (0.6-1.0) L Estimated GFR (Cockcroft-Gault) > 300.0 BUN/Creatinine Ratio 20 (6-20) Glucose Level 86 mg/dL (70-99) Calcium Level 8.8 mg/dL (8.5-10.1) Total Bilirubin 1.1 mg/dL (0.2-1.0) H Aspartate Amino Transferase (AST) 27 U/L (15-37) Alanine Aminotransferase (ALT) 14 U/L (14-59) Alkaline Phosphatase 71 U/L (46-116) Total Protein 6.9 g/dL (6.4-8.2) Albumin 3.3 g/dL (3.4-5.0) L Albumin/Globulin Ratio 0.9 (1.0-1.7) L Laboratory Tests 09/14/20 00:45 Laboratory Tests 09/14/20 00:45 Vital Signs: Vital Signs Date Time Temp Pulse Resp B/P (MAP) Pulse Ox O2 Delivery O2 Flow Rate FiO2 09/14/20 02:13 118 18 95/53 (67) 100 Room Air 09/14/20 00:27 98.1 98.1 EKG: EKG: [] Heart Score: Risk Factors: Risk Factors: DM, Current or recent (<one month) smoker, HTN, HLP, family history of CAD, obesity. Risk Scores: Score 0 - 3: 2.5% MACE over next 6 weeks - Discharge Home Score 4 - 6: 20.3% MACE over next 6 weeks - Admit for Clinical Observation Score 7 - 10: 72.7% MACE over next 6 weeks - Early Invasive Strategies Radiology/Procedures: Radiology/Procedures: [] Course & Med Decision Making: Course & Med Decision Making Pertinent Labs and Imaging studies reviewed. (See chart for details) Patient is a 20-year-old female who presents to the emergency room with diarrhea and lower abdominal cramping. Patient had a normal ultrasound done 2 days prior. She does not need repeat ultrasound at this time. She does not have any vaginal bleeding or discharge. This is likely gastroenteritis or viral in nature. She will be given fluids. Abdominal labs will be done to screen for more severe pathology. Patient does not have any pinpoint tenderness on exam. Doppler will be done for heart tones. Patient is feeling better after fluids. Lab work does not suggest severe infection, liver pathology, acute kidney injury. UA is negative. Discussed with patient coming back if her symptoms recur or she has any other symptoms. Patient's test results and vitals while in the ED were fully reviewed and discussed with the patient. Patient is stable and at this time does not need admission to the hospital. We have discussed strict return precautions and the importance of following up with their Primary Care Physician. Patient stated understanding and was given an opportunity to ask any questions. Patient is in agreement with plan. Adolfo Disclaimer: Adolfo Disclaimer: This electronic medical record was generated, in whole or in part, using a voice recognition dictation system. Departure Departure Impression: Primary Impression: Diarrhea Additional Impression: Abdominal pain affecting Disposition: 01 DC HOME SELF CARE/HOMELESS Condition: STABLE Referrals: NO PCP (PCP) Patient Instructions: Abdominal Pain During , Diarrhea, - Urinary Tract Infection Scripts Ondansetron Hcl (ZOFRAN) 4 Mg Tablet 1 TAB PO PRN Q6-8HRS for nausea, #12 TAB Prov: KERRY CAMILO MD 09/14/20 Nitrofurantoin Monohyd/M-Cryst (MACROBID 100 MG CAPSULE) 100 Mg Capsule 1 CAP PO BID for 5 Days, #10 CAP 0 Refills Prov: KERRY CAMILO MD 09/14/20 Problem Qualifiers KERRY CAMILO MD Sep 14, 2020 00:34
[2020-09-14 00:52] LABS: BASO % 0 % (0-3); EOS % 0 % (0-3); HEMATOCRIT 34.2 % (36.0-47.0); HEMOGLOBIN 11.7 g/dL (12.0-15.5); LYMPH # 0.4 x10^3/uL (1.0-4.8); LYMPH % 6 % (24-48); MEAN CORPUSCULAR HEMOGLOBIN 29 pg (25-35); MEAN CORPUSCULAR HGB CONC 34 g/dL (31-37); MEAN CORPUSCULAR VOLUME 84 fL (79-100); MONO # 0.3 x10^3/uL (0.0-1.1); MONO % 4 % (0-9); NEUT # 6.1 x10^3/uL (1.8-7.7); NEUT % 89 % (31-73); PLATELET COUNT 197 x10^3/uL (140-400); RED BLOOD COUNT 4.08 x10^6/uL (3.50-5.40); RED CELL DISTRIBUTION WIDTH 15.9 % (11.5-14.5); WHITE BLOOD COUNT 6.8 x10^3/uL (4.0-11.0)
[2020-09-14] MEDS ORDERED: IV NORMAL SALINE 1000ML BAG 1,000 ML IV ONE ×2 (01:00→02:00)
[2020-09-14] MEDS ORDERED: ONDANSETRON PF 4 MG/2 ML VIAL. IVP ONE (01:00)
[2020-09-14 01:02] LABS: BILIRUBIN,URINE NEGATIVE (NEG); CLARITY,URINE CLEAR; COLOR,URINE YELLOW; NITRITE,URINE NEGATIVE (NEG); PROTEIN,URINE 30 mg/dL (NEG-TRACE); UROBILINOGEN,URINE 0.2 mg/dL (0.2 mg/dL)
[2020-09-14 01:05] LABS: BLOOD UREA NITROGEN 6 mg/dL (7-20); BUN/CREATININE RATIO 20 (6-20); CALCIUM 8.8 mg/dL (8.5-10.1); CREATININE 0.3 mg/dL (0.6-1.0); GFR > 300.0; GLUCOSE 86 mg/dL (70-99); SODIUM 133 mmol/L (136-145)
[2020-09-14 01:06] LABS: ANION GAP 13 (6-14); CARBON DIOXIDE 20 mmol/L (21-32); CHLORIDE 100 mmol/L (98-107)
[2020-09-14 01:10] LABS: ALBUMIN 3.3 g/dL (3.4-5.0); ALBUMIN/GLOBULIN RATIO 0.9 (1.0-1.7); ALK PHOS 71 U/L (46-116); ALT (SGPT) 14 U/L (14-59); AST (SGOT) 27 U/L (15-37); TOTAL BILIRUBIN 1.1 mg/dL (0.2-1.0); TOTAL PROTEIN 6.9 g/dL (6.4-8.2)
[2020-09-14 01:12] LABS: BACTERIA,URINE MANY /HPF (0-FEW); RBC,URINE 0 /HPF (0-2)
[2020-09-14] MEDS ORDERED: ACETAMINOPHEN 500 MG TABLET PO ONE (02:30)
[2020-09-14] MEDS ORDERED: ONDA4TAB7 PO (03:09)
[2020-09-14] MEDS ORDERED: NITR100C62 PO (03:09)
[2020-09-14 03:13] VITALS: BP 87/53
[2020-09-14 03:35] LABS: % LYMPHS 6 % (24-48); % MONOS 6 % (0-10); % SEGS 88 % (35-66); PLT ESTIMATE ADEQUATE (ADEQUATE)
== END 2020-09-14 03:15 | disposition home or self-care (01) ==
LOC: ER 23:27
DX: O26.891 Other specified pregnancy related conditions, first trimester (principal); Z20.828 Contact with and (suspected) exposure to other viral communicable diseases; R19.7 Diarrhea, unspecified; R10.9 Unspecified abdominal pain; J45.909 Unspecified asthma, uncomplicated; Z98.890 Other specified postprocedural states; R53.1 Weakness
CPT/HCPCS: 36415; 80053; 81001; 81025; 85007; 85025; 96361; 96374; 99283; J2405; J7030; U0003; C9803

== ENCOUNTER 2020-09-15 19:33 | Emergency (ER) | payer MEDICAID ==
[~2020-09-15] VITALS: Ht 157.5 cm; Wt 59.0 kg
[~2020-09-15 19:33] MED LIST changes: +ONDA4TAB7 PO
[2020-09-15 20:18] VITALS: BP 136/83
[2020-09-15] MEDS ORDERED: LIDOCAINE WITH 8.4% SOD BICARB 3 ML DISP.SYRIN. INJ ONE (20:45)
--- NOTE | 2020-09-15 21:26 | PHYS DOC ---
Past Medical History Past Medical History: Asthma Past Surgical History: , Other Additional Past Surgical Histo: d and c Smoking Status: Never Smoker Alcohol Use: None Drug Use: None General Adult EDM: Chief Complaint: LACERATION/AVULSION HPI: HPI: Patient is a 20 year old female presenting to the ED today with left palm laceration. Patient accidentally cut herself with a knife while cutting and apple. She is right-handed. Review of Systems: Review of Systems: Constitutional: Denies fever or chills. [] Musculoskeletal: Denies back pain or joint pain. [] Integument: Reports left hand laceration Neurologic: Denies headache, focal weakness or sensory changes. [] Psychiatric: Denies depression or anxiety. [] Heart Score: Risk Factors: Risk Factors: DM, Current or recent (<one month) smoker, HTN, HLP, family history of CAD, obesity. Risk Scores: Score 0 - 3: 2.5% MACE over next 6 weeks - Discharge Home Score 4 - 6: 20.3% MACE over next 6 weeks - Admit for Clinical Observation Score 7 - 10: 72.7% MACE over next 6 weeks - Early Invasive Strategies Current Medications: Current Medications Medications (Trade) Dose Ordered Sig/Kristie Start Time Stop Time Status Last Admin Dose Admin Lidocaine HCl (Buffered Lidocaine 1%) 6 ml 1X ONCE 09/15/20 20:45 09/15/20 20:48 DC 09/15/20 21:06 6 ML Allergies: Allergies: Allergies Coded Allergies Type Severity Reaction Last Updated Verified No Known Drug Allergies 11/21/18 No Physical Exam: PE: Constitutional: Well developed, well nourished, no acute distress, non-toxic appearance. [] Skin: Webspace between the left index finger and thumb with a laceration approximately 4 cm long, there is no obvious tendon involvement. Patient able to flex and extend all the fingers on the left hand. Adequate radial, medial, ulnar sensation to the left hand. Cap refill less than 2 seconds to left fingers Back: No tenderness, no CVA tenderness. [] Extremities: No tenderness, no cyanosis, no clubbing, ROM intact, no edema. [] Neurologic: Alert and oriented X 3, normal motor function, normal sensory function, no focal deficits noted. [] Psychologic: Affect normal, judgement normal, mood normal. [] Current Patient Data: Vital Signs: Vital Signs Date Time Temp Pulse Resp B/P (MAP) Pulse Ox O2 Delivery O2 Flow Rate FiO2 09/15/20 20:18 98.6 98 16 136/83 (100) 99 Room Air 98.6 EKG: EKG: [] Radiology/Procedures: Radiology/Procedures: Laceration/Wound Repair Wound Location: Left hand laceration Wound's Depth, Shape: Horizontal Wound Length (cm): Approximately 4 cm Wound Explored: clean Irrigated w/ Saline (ccs): 160 Betadine Prep?: Yes Anesthesia: 1% of buffered lidocaine Volume Anesthetic (ccs): 5 mL Wound Repaired With: Vicryl Suture Size/Type: 4.0/interrupted sutures Number of Sutures: 8 Progress : Wound was covered with nonstick dressing Course & Med Decision Making: Course & Med Decision Making Pertinent Labs and Imaging studies reviewed. (See chart for details) This is a 20-year-old female patient presented to the ED today with left hand laceration that was closed by me as noted in procedures. Wound care instructions and return precautions provided. Tetanus up-to-date. Discharge to home. Dragon Disclaimer: DragNeiron Disclaimer: This electronic medical record was generated, in whole or in part, using a voice recognition dictation system. Departure Departure Impression: Primary Impression: Laceration of left hand Qualified Codes: S61.412A - Laceration without foreign body of left hand, initial encounter Disposition: 01 DC HOME SELF CARE/HOMELESS Condition: STABLE Referrals: NO PCP (PCP) Follow-up with your doctor as needed Patient Instructions: Laceration Care, Adult Additional Instructions: You have a laceration on the left hand that was repaired with dissolvable stitches. Keep the area clean and dry. You can wash your hands as needed but do not soak the laceration site. Apply Neosporin to the laceration site twice a day for 7 days. Monitor the area for any signs of infection including but not limited to increased redness, warmth, yellow drainage from the areas on return to the ED NICKI REID APRN Sep 15, 2020 21:26
== END 2020-09-15 21:30 | disposition home or self-care (01) ==
LOC: ER 19:33
DX: S61.412A Laceration without foreign body of left hand, initial encounter (principal); J45.909 Unspecified asthma, uncomplicated; Z98.890 Other specified postprocedural states; W26.0XXA Contact with knife, initial encounter; Y93.89 Activity, other specified; Y92.89 Other specified places as the place of occurrence of the external cause; Y99.8 Other external cause status
CPT/HCPCS: 12002; 99282; J3490

== ENCOUNTER 2020-09-29 17:31 | Emergency (ER) | payer MEDICAID ==
[~2020-09-29] VITALS: Ht 157.5 cm; Wt 55.3 kg
[2020-09-29] MEDS ORDERED: IV RINGERS,LACTATED 500ML 500 ML IV ONE (20:00)
--- NOTE | 2020-09-29 20:01 | ED.ADGEN ---
Past Medical History Past Medical History: Asthma Past Surgical History: , Other Additional Past Surgical Histo: d and c Smoking Status: Never Smoker Alcohol Use: None Drug Use: None General Adult EDM: Chief Complaint: VOMITING IN HPI: HPI: Patient is a 20 year old G3, P1 at 13 weeks gestational age coming in for evaluation of possible low CARLOS. Patient says she called her WELDER REPAIR's office she has been having fluid soaking her underwear every few nights that does not smell like urine. I told her to come to the emergency department for evaluation of t he amniotic fluid. Patient has a history with her previous of having loss of fluids and low CARLOS. Patient also had decreased p.o. intake over the last few days due to nausea and vomiting. States of vomiting is nonbloody or bilious. Patient states she has a bowel movement every day but has straining. Denies any vaginal bleeding or discharge. Denies any other fever, cough, sick contacts. States she did not have problems with morning sickness with his previous pregnancies Review of Systems: Review of Systems: Constitutional: Denies fever or chills. [] Eyes: Denies change in visual acuity. [] HENT: Denies nasal congestion or sore throat. [] Respiratory: Denies cough or shortness of breath. [] Cardiovascular: Denies chest pain or edema. [] GI: Nausea and vomiting, constipation : Denies dysuria. [] Denies vaginal bleeding or discharge, but has had loss of clear fluid Musculoskeletal: Denies back pain or joint pain. [] Integument: Denies rash. [] Neurologic: Denies headache, focal weakness or sensory changes. [] Endocrine: Denies polyuria or polydipsia. [] Lymphatic: Denies swollen glands. [] Psychiatric: Denies depression or anxiety. [] Current Medications: Current Medications Medications (Trade) Dose Ordered Sig/Kristie Start Time Stop Time Status Last Admin Dose Admin Ceftriaxone Sodium (Rocephin) 1 gm 1X ONCE 09/29/20 22:00 09/29/20 22:01 Ringer's Solution 500 ml @ 1,000 mls/hr 1X ONCE 09/29/20 20:00 09/29/20 20:29 DC 09/29/20 20:48 1,000 MLS/HR Allergies: Allergies: Allergies Coded Allergies Type Severity Reaction Last Updated Verified No Known Drug Allergies 11/21/18 No Physical Exam: PE: Constitutional: Well developed, well nourished, no acute distress, non-toxic appearance. [] HENT: Normocephalic, atraumatic, bilateral external ears normal, oropharynx moist, no oral exudates, nose normal. [] Eyes: PERRLA, EOMI, conjunctiva normal, no discharge. [] Neck: Normal range of motion, no tenderness, supple, no stridor. [] Cardiovascular:Heart rate regular rhythm, no murmur [] Lungs & Thorax: Bilateral breath sounds clear to auscultation [] Abdomen: Bowel sounds normal, soft, no tenderness, no masses, no pulsatile masses. [] Skin: Warm, dry, no erythema, no rash. [] Back: No tenderness, no CVA tenderness. [] Extremities: No tenderness, no cyanosis, no clubbing, ROM intact, no edema. [] Neurologic: Alert and oriented X 3, normal motor function, normal sensory function, no focal deficits noted. [] Psychologic: Affect normal, judgement normal, mood normal. [] Current Patient Data: Labs: Laboratory Tests Test 09/29/20 19:40 White Blood Count 6.0 x10^3/uL (4.0-11.0) Red Blood Count 4.52 x10^6/uL (3.50-5.40) Hemoglobin 12.9 g/dL (12.0-15.5) Hematocrit 38.0 % (36.0-47.0) Mean Corpuscular Volume 84 fL (79-100) Mean Corpuscular Hemoglobin 29 pg (25-35) Mean Corpuscular Hemoglobin Concent 34 g/dL (31-37) Red Cell Distribution Width 14.8 % (11.5-14.5) H Platelet Count 292 x10^3/uL (140-400) Neutrophils (%) (Auto) 64 % (31-73) Lymphocytes (%) (Auto) 26 % (24-48) Monocytes (%) (Auto) 8 % (0-9) Eosinophils (%) (Auto) 1 % (0-3) Basophils (%) (Auto) 1 % (0-3) Neutrophils # (Auto) 3.8 x10^3/uL (1.8-7.7) Lymphocytes # (Auto) 1.6 x10^3/uL (1.0-4.8) Monocytes # (Auto) 0.5 x10^3/uL (0.0-1.1) Eosinophils # (Auto) 0.1 x10^3/uL (0.0-0.7) Basophils # (Auto) 0.0 x10^3/uL (0.0-0.2) Urine Collection Type Unknown Urine Color Yellow Urine Clarity Clear Urine pH 7.5 (<5.0-8.0) Urine Specific [place] 1.020 (1.000-1.030) Urine Protein Negative mg/dL (NEG-TRACE) Urine Glucose (UA) Negative mg/dL (NEG) Urine Ketones (Stick) Negative mg/dL (NEG) Urine Blood Negative (NEG) Urine Nitrite Negative (NEG) Urine Bilirubin Negative (NEG) Urine Urobilinogen Dipstick 1.0 mg/dL (0.2 mg/dL) Urine Leukocyte Esterase Moderate (NEG) Urine RBC Rare /HPF (0-2) Urine WBC 11-20 /HPF (0-4) Urine Squamous Epithelial Cells Many /LPF Urine Bacteria Many /HPF (0-FEW) Urine Mucus Mod /LPF POC Urine HCG, Qualitative Hcg positive (Negative) Sodium Level 137 mmol/L (136-145) Potassium Level 3.6 mmol/L (3.5-5.1) Chloride Level 101 mmol/L (98-107) Carbon Dioxide Level 25 mmol/L (21-32) Anion Gap 11 (6-14) Blood Urea Nitrogen 4 mg/dL (7-20) L Creatinine 0.4 mg/dL (0.6-1.0) L Estimated GFR (Cockcroft-Gault) 243.8 BUN/Creatinine Ratio 10 (6-20) Glucose Level 86 mg/dL (70-99) Calcium Level 9.2 mg/dL (8.5-10.1) Phosphorus Level 4.2 mg/dL (2.6-4.7) Magnesium Level 2.0 mg/dL (1.8-2.4) Total Bilirubin 0.6 mg/dL (0.2-1.0) Aspartate Amino Transferase (AST) 18 U/L (15-37) Alanine Aminotransferase (ALT) 13 U/L (14-59) L Alkaline Phosphatase 79 U/L (46-116) Total Protein 7.7 g/dL (6.4-8.2) Albumin 3.5 g/dL (3.4-5.0) Albumin/Globulin Ratio 0.8 (1.0-1.7) L Lipase 123 U/L (73-393) Laboratory Tests 09/29/20 19:40 Laboratory Tests 09/29/20 19:40 Vital Signs: Vital Signs Date Time Temp Pulse Resp B/P (MAP) Pulse Ox O2 Delivery O2 Flow Rate FiO2 09/29/20 19:40 97.8 95 20 117/69 (85) 100 Room Air 97.8 EKG: EKG: [] Heart Score: Risk Factors: Risk Factors: DM, Current or recent (<one month) smoker, HTN, HLP, family history of CAD, obesity. Risk Scores: Score 0 - 3: 2.5% MACE over next 6 weeks - Discharge Home Score 4 - 6: 20.3% MACE over next 6 weeks - Admit for Clinical Observation Score 7 - 10: 72.7% MACE over next 6 weeks - Early Invasive Strategies Radiology/Procedures: Radiology/Procedures: Exam: Ultrasound OB less than 14 weeks Indication: Pelvic pain Technique: Real-time grayscale and color Doppler images of the pelvis were obtained by the department egg factory worker. Comparisons: None FINDINGS: Uterus measures 13 x 10 x 8.2 cm. Within the endometrium there is a single live intrauterine gestation with heart rate measured at 157 bpm. measurements as follows: BPD: 2.4 cm corresponding to 14 weeks 0 days Head circumference: 9.6 cm corresponding to 14 weeks 3 days Abdominal circumference: 7.3 cm corresponding to 13 weeks 6 days Femur length: 1.1 corresponding to 13 weeks 1 day Placenta is posterior and has a normal appearance. IMPRESSION: 1. Single live intrauterine gestation of 13 weeks 4 days by LMP with concordant ultrasound. 2. Dedicated survey is recommended at 18-20 weeks gestation. [] Course & Med Decision Making: Course & Med Decision Making Pertinent Labs and Imaging studies reviewed. (See chart for details) [] Dragon Disclaimer: Dragon Disclaimer: This electronic medical record was generated, in whole or in part, using a voice recognition dictation system. Departure Departure Impression: Primary Impression: Urinary tract infection affecting Disposition: 01 DC HOME SELF CARE/HOMELESS Condition: STABLE Referrals: ZULEIMA MORGAN Jr, MD Patient Instructions: Osmolality, Urine Scripts Cephalexin (CEPHALEXIN) 500 Mg Tablet 1 TAB PO BID for UTI for 5 Days, #10 TAB Prov: RALEIGH KELLEY MD 09/29/20 RALEIGH KELLEY MD Sep 29, 2020 20:00
[2020-09-29 20:13] LABS: BASO % 1 % (0-3); EOS # 0.1 x10^3/uL (0.0-0.7); EOS % 1 % (0-3); HEMOGLOBIN 12.9 g/dL (12.0-15.5); LYMPH # 1.6 x10^3/uL (1.0-4.8); LYMPH % 26 % (24-48); MEAN CORPUSCULAR HEMOGLOBIN 29 pg (25-35); MEAN CORPUSCULAR HGB CONC 34 g/dL (31-37); MEAN CORPUSCULAR VOLUME 84 fL (79-100); MONO # 0.5 x10^3/uL (0.0-1.1); MONO % 8 % (0-9); NEUT # 3.8 x10^3/uL (1.8-7.7); NEUT % 64 % (31-73); PLATELET COUNT 292 x10^3/uL (140-400); RED BLOOD COUNT 4.52 x10^6/uL (3.50-5.40); RED CELL DISTRIBUTION WIDTH 14.8 % (11.5-14.5)
[2020-09-29 20:15] LABS: BILIRUBIN,URINE NEGATIVE (NEG); CLARITY,URINE CLEAR; COLOR,URINE YELLOW; NITRITE,URINE NEGATIVE (NEG); PH,URINE 7.5 (<5.0-8.0); PROTEIN,URINE NEGATIVE (NEG-TRACE)
[2020-09-29 20:21] LABS: BACTERIA,URINE MANY /HPF (0-FEW); RBC,URINE RARE /HPF (0-2)
[2020-09-29 20:28] LABS: CALCIUM 9.2 mg/dL (8.5-10.1); CREATININE 0.4 mg/dL (0.6-1.0); GFR 243.8; POTASSIUM 3.6 mmol/L (3.5-5.1)
[2020-09-29 20:34] LABS: ALBUMIN 3.5 g/dL (3.4-5.0); ALBUMIN/GLOBULIN RATIO 0.8 (1.0-1.7); PHOSPHORUS 4.2 mg/dL (2.6-4.7); TOTAL BILIRUBIN 0.6 mg/dL (0.2-1.0); TOTAL PROTEIN 7.7 g/dL (6.4-8.2)
--- NOTE | 2020-09-29 20:42 | RAD ---
Exam: Ultrasound OB less than 14 weeks Indication: Pelvic pain Technique: Real-time grayscale and color Doppler images of the pelvis were obtained by the department portrait studio photographer. Comparisons: None FINDINGS: Uterus measures 13 x 10 x 8.2 cm. Within the endometrium there is a single live intrauterine gestation with heart rate measured at 157 bpm. measurements as follows: BPD: 2.4 cm corresponding to 14 weeks 0 days Head circumference: 9.6 cm corresponding to 14 weeks 3 days Abdominal circumference: 7.3 cm corresponding to 13 weeks 6 days Femur length: 1.1 corresponding to 13 weeks 1 day Placenta is posterior and has a normal appearance. IMPRESSION: 1. Single live intrauterine gestation of 13 weeks 4 days by LMP with concordant ultrasound. 2. Dedicated survey is recommended at 18-20 weeks gestation. Electronically signed by: Cass Mccord MD (09/29/2020 8:39 PM) [facility]
[2020-09-29 21:39] VITALS: BP 106/60
[2020-09-29] MEDS ORDERED: CEPH500T PO (21:40)
[2020-09-29] MEDS ORDERED: cefTRIAXone IV Push 1 GM VIAL. IVP ONE (22:00)
== END 2020-09-29 21:59 | disposition home or self-care (01) ==
LOC: ER 17:31
DX: O23.42 Unspecified infection of urinary tract in pregnancy, second trimester (principal); O99.511 Diseases of the respiratory system complicating pregnancy, first trimester; J45.909 Unspecified asthma, uncomplicated; Z3A.13 13 weeks gestation of pregnancy
CPT/HCPCS: 36415; 76801; 80053; 81001; 81025; 83690; 83735; 84100; 85025; 87086; 96361; 96374; 99285; J0696; J7120

== ENCOUNTER → 2020-12-04 | Outpatient (CLI) | payer MEDICAID ==
[2020-10-05 17:00] VITALS: BP 151/71
--- NOTE | 2020-12-04 16:42 | RAD ---
EXAM: OB ULTRASOUND, > 14 WEEKS HISTORY: anatomy survey. COMPARISON: 09/29/2020. TECHNIQUE: Multiple grayscale images, color Doppler, and M-mode images of the uterus are obtained. FINDINGS: There is a single intrauterine gestation in cephalic presentation. The placenta is posterior in locat ion without evidence of placenta previa. The amount of amniotic fluid appears appropriate. Amniotic fluid index is 11.6 cm. Cervical length is 2.8 cm. Biometrical data: BPD = 5.71 cm for 23 weeks 3 days. HC = 21.49 cm for 23 weeks 4 days. AC = 17.40 cm for 22 weeks 2 days. FL = 3.79 cm for 22 weeks 1 days. HC/AC ratio = 1.24. Overall, the estimated sonographic gestational age is 22 weeks and 6 days for an estimated date of de livery of 04/03/2021. The estimated date of delivery provided by the last menstrual period is . Estimated weight is 502 grams. This corresponds with the 32nd percentile for a gestational age of 23 weeks and 0 days based on LMP. A 4 chamber heart is identified with positive cardiac activity. The estimated heart rate is 155 beats per minute. Bilateral upper and lower extremities are identified. There is a three-vessel cord with cord insertion visualized. stomach and urinary bladder are identified. Both kidneys are seen. The spine and brain are unremarkable. No obvious anatomic abnormalities are identified. The maternal ovaries are not identified in the adnexa due to overlying bowel gas. IMPRESSION: 1. Single intrauterine fetus with normal heart rate and gestational age patient also measurements of 20 weeks and 6 days. 2. Unremarkable anatomy survey. Electronically signed by: Cindy Goldsmith MD (12/04/2020 4:39 PM) [email or web address]
== END ==
LOC: US 13:28
PROVIDERS: ATTEND Obstetrics & Gynecology
DX: O26.842 Uterine size-date discrepancy, second trimester (principal); Z3A.20 20 weeks gestation of pregnancy
CPT/HCPCS: 76805

== ENCOUNTER 2021-01-07 18:31 | Observation (INO) | payer MEDICAID ==
[2020-10-05 17:00] VITALS: BP 151/71
[2021-01-07 19:00] LABS: BILIRUBIN,URINE NEGATIVE (NEG); CLARITY,URINE CLOUDY; COLOR,URINE YELLOW; NITRITE,URINE NEGATIVE (NEG); PROTEIN,URINE 30 mg/dL (NEG-TRACE)
[2021-01-07] MEDS ORDERED: IV RINGERS,LACTATED 1000ML 1,000 ML IV PRN (19:00)
[2021-01-07 19:07] LABS: BACTERIA,URINE MANY /HPF (0-FEW); RBC,URINE 0 /HPF (0-2)
[2021-01-07] MEDS ORDERED: ACETAMINOPHEN 500 MG TABLET PO ONE (19:45)
== END 2021-01-07 21:50 | disposition home or self-care (01) ==
LOC: 3 SO LND 18:31
PROVIDERS: ADMIT Obstetrics & Gynecology; ATTEND Obstetrics & Gynecology
DX: O26.852 Spotting complicating pregnancy, second trimester (principal); O26.892 Other specified pregnancy related conditions, second trimester; R10.9 Unspecified abdominal pain; Z3A.27 27 weeks gestation of pregnancy
CPT/HCPCS: 59025; 81001; 87086; 96360; G0378; G0379; J7120

== ENCOUNTER 2021-01-13 21:31 | Observation (INO) | payer MEDICAID ==
[2020-10-05 17:00] VITALS: BP 151/71
[2021-01-13] MEDS ORDERED: IV RINGERS,LACTATED 1000ML 1,000 ML IV SCH (21:45)
[2021-01-13 21:55] LABS: BILIRUBIN,URINE NEGATIVE (NEG); CLARITY,URINE CLEAR; COLOR,URINE YELLOW; NITRITE,URINE NEGATIVE (NEG); PH,URINE 6.5 (<5.0-8.0); PROTEIN,URINE NEGATIVE (NEG-TRACE)
[2021-01-13 22:02] LABS: BACTERIA,URINE FEW /HPF (0-FEW); RBC,URINE 0 /HPF (0-2); WBC,URINE OCC /HPF (0-4)
[2021-01-13 22:03] LABS: BARBITURATES NEG (NEG); BENZODIAZEPINES NEG (NEG); CANNABINOIDS NEG (NEG); COCAINE NEG (NEG); METHADONE NEG (NEG); OPIATES NEG (NEG); PHENCYCLIDINE NEG (NEG)
[2021-01-13 22:07] LABS: AMPHETAMINE/METHAMPHETAMINE NEG (NEG)
== END 2021-01-14 00:13 | disposition home or self-care (01) ==
LOC: 3 SO LND 21:31
PROVIDERS: ADMIT Obstetrics & Gynecology; ATTEND Obstetrics & Gynecology
DX: O36.8130 Decreased fetal movements, third trimester, not applicable or unspecified (principal); O26.893 Other specified pregnancy related conditions, third trimester; R10.9 Unspecified abdominal pain; Z3A.28 28 weeks gestation of pregnancy; Z79.899 Other long term (current) drug therapy; Z98.891 History of uterine scar from previous surgery
CPT/HCPCS: 59025; 80307; 81001; 87086; G0378; G0379

== ENCOUNTER 2021-01-16 21:23 | Observation (INO) | payer MEDICAID ==
[2020-10-05 17:00] VITALS: BP 151/71
[2021-01-16 21:45] LABS: BILIRUBIN,URINE NEGATIVE (NEG); CLARITY,URINE CLEAR; NITRITE,URINE NEGATIVE (NEG); PROTEIN,URINE NEGATIVE (NEG-TRACE)
[2021-01-16] MEDS ORDERED: IV RINGERS,LACTATED 1000ML 1,000 ML IV SCH (21:45)
[2021-01-16] MEDS ORDERED: ACETAMINOPHEN 500 MG TABLET PO PRN (21:45)
[2021-01-16 21:51] LABS: COLOR,URINE STRAW
[2021-01-16 21:52] LABS: BACTERIA,URINE MANY /HPF (0-FEW)
[2021-01-16 21:54] LABS: RBC,URINE 0 /HPF (0-2); WBC,URINE OCC /HPF (0-4)
== END 2021-01-16 22:46 | disposition home or self-care (01) ==
LOC: 3 SO LND 21:23
PROVIDERS: ADMIT Obstetrics & Gynecology; ATTEND Obstetrics & Gynecology
DX: O36.8130 Decreased fetal movements, third trimester, not applicable or unspecified (principal); Z3A.29 29 weeks gestation of pregnancy; Z79.899 Other long term (current) drug therapy; Z86.16 Personal history of COVID-19
CPT/HCPCS: 59025; 81001; 87086; 87147; G0378; G0379

== ENCOUNTER → 2021-02-22 | Outpatient (CLI) | payer MEDICAID ==
[2020-10-05 17:00] VITALS: BP 151/71
--- NOTE | 2021-02-22 17:12 | RAD ---
CLINICAL HISTORY: Reason: UTERINE SIZE DATE DISCREPENCY / Spl. Instructions: / History: COMPARISON: None available. TECHNIQUE: Limited transabdominal ultrasound of the uterus was performed. FINDINGS: There is a single live fetus in cephalic position. Cardiac activity is visualized and documented at a rate of 135 beats per minute. The placenta is posterior without placenta previa. The amniotic fluid is normal for gestational stag e. the amniotic fluid index is 10 cm. Current measurements are: BPD - 8.67 centimeters = 35 weeks 0 days HC - 31.19 Centimeters = 34 weeks 6 days AC - 29.35 cm =33 weeks 2 day FL - 6.48 cm = 33 weeks 3 days The gestational size based on todays measurements is 34 weeks 1 days. The estimated weight is 2250+/- 333 gm. This is at the 34 percentile for the expected gestation al age. All measured ratios and indices are within normal limits. The estimated date of delivery is 04/04/2021. IMPRESSION: Single live intrauterine gestation with an estimated gestational age of 34 weeks 1 day with an estima martha date of delivery 04/04/2021. Electronically signed by: Ildefonso Rojas MD (02/22/2021 5:10 PM) [email or web address]
== END ==
LOC: US 08:42
PROVIDERS: ATTEND Obstetrics & Gynecology
DX: O09.93 Supervision of high risk pregnancy, unspecified, third trimester (principal); O26.843 Uterine size-date discrepancy, third trimester; Z3A.34 34 weeks gestation of pregnancy
CPT/HCPCS: 76805

== ENCOUNTER → 2021-03-25 | Outpatient (CLI) | payer MEDICAID ==
[2020-10-05 17:00] VITALS: BP 151/71
[~2021-03-25] MED LIST changes: +OXYC1TAB15 PO
== END ==
LOC: LAB 13:47
PROVIDERS: ATTEND Obstetrics & Gynecology
DX: Z01.812 Encounter for preprocedural laboratory examination (principal); Z20.822 Contact with and (suspected) exposure to COVID-19
CPT/HCPCS: U0003; U0005

== ENCOUNTER 2021-03-26 10:08 | Inpatient (IN) | payer MEDICAID ==
[~2021-03-26] VITALS: Ht 157.5 cm; Wt 61.0 kg
[2021-03-26] VITALS (8 sets, daily range): BP systolic 96–127; BP diastolic 51–77
[~2021-03-26 10:08] MED LIST changes: -OXYC1TAB15 PO
[2021-03-26] MEDS: IV RINGERS,LACTATED 1000ML 1,000 ML IV PRN ×3 (10:53→16:26)
[2021-03-26 11:15] LABS: HEMATOCRIT 31.4 % (36.0-47.0); HEMOGLOBIN 10.3 g/dL (12.0-15.5); RED BLOOD COUNT 4.08 x10^6/uL (3.50-5.40); RED CELL DISTRIBUTION WIDTH 15.3 % (11.5-14.5); WHITE BLOOD COUNT 4.7 x10^3/uL (4.0-11.0)
[2021-03-26 11:22] LABS: BILIRUBIN,URINE NEGATIVE (NEG); COLOR,URINE YELLOW; NITRITE,URINE NEGATIVE (NEG); PH,URINE 6.5 (<5.0-8.0); PROTEIN,URINE NEGATIVE (NEG-TRACE)
[2021-03-26 11:32] LABS: CLARITY,URINE HAZY
[2021-03-26 11:33] LABS: BACTERIA,URINE MANY /HPF (0-FEW)
--- NOTE | 2021-03-26 11:42 | PDOC1 ---
OB - History Hx of Present Care: Good Care Ultrasounds: Normal mid trimester US Obstetrical Complications: None Medical Complications: None Past Family/Social History * Past Medical, Surgical, Family and Obstetric Histories reviewed from chart. Rubella: Immune RPR/VDRL: Negative GBS Status: Negative HBsAG: Negative OB - Chief Complaint & HPI Date of Admission: Date of Admission: Mar 26, 2021 at 10:08 Chief Complaint/History : 2 Para: 1 EGA: 39 Reason for admission: section Indication for : desires repeat Admission Nurse Assessment Rev: Yes OB - Admission Exam Physical Exam HEENT: Normal Heart: Regular Rate Lungs: Clear, Equal Abdomen: Gravid, Non tender, Soft Extremities: Edema Reflexes: Normal Cervical Dilatation: None Effacement: 25% Station: Ballotable Membranes: Intact Heart Rate: Normal Accelerations: Accelerations Present Decelerations: No decelerations Contractions on Admission: None Text A: 39 wks IUP Previous c/s x 1 P: Admit for repeat c/s and BTL. ZULEIMA MORGAN Jr, MD Mar 26, 2021 11:42
[2021-03-26] MEDS ORDERED: CITRIC ACID/SODIUM CITRATE 30 ML SOLUTION. PO ONE (11:45)
[2021-03-26] MEDS ORDERED: MORPHINE PF 10 MG/10 ML AMPUL. ONE (11:45)
[2021-03-26] MEDS ORDERED: OXYTOCIN 10 UNIT/ML VIAL. ONE (11:45)
[2021-03-26] MEDS ORDERED: ePHEDrine PF IN SALINE 50 MG/10 ML SYRINGE. IV ONE (11:45)
[2021-03-26] MEDS ORDERED: PHENYLEPHRINE in 0.9% NACL PF 1 MG/10 ML SYRINGE. IV ONE (11:45)
[2021-03-26] MEDS ORDERED: METOCLOPRAMIDE HCL 10 MG/2 ML VIAL. ONE (12:41)
--- NOTE | 2021-03-26 13:02 | PDOC4 ---
OB Operative Note Date: Mar 26, 2021 PRE OP DIAGNOSIS: Previoujs C- section POST OP DIAGNOSIS: Other (Same) OPERATION PERFORMED: R KTSC (and BTL) Surgeon Dr. Stern Legal Billing Clerk Windshield Repair Technician: Branden Anesthesia: Regional (Spinal) Blood Loss 500 ml Specimen placenta and infant OB Findings: Position (Vertex), Sex (Male), (8/9), Weight (6 Lb 10 oz), Fluid (Clear), Nuchal Cord (x1) Complications none Additional Remarks pt. ZULEIMA Smith Jr, MD Mar 26, 2021 13:02
[2021-03-26] MEDS ORDERED: 0.9 % SODIUM CHLORIDE 10 ML DISP.SYRIN. IV PRN (13:15)
[2021-03-26] MEDS ORDERED: MAG HYDROX/ALUMINUM HYD/SIMETH 30 ML ORAL.SUSP PO PRN (13:15)
[2021-03-26] MEDS ORDERED: diphenhydrAMINE ORAL ELIXIR 12.5 MG/5 ML ML PO PRN (13:15)
[2021-03-26] MEDS ORDERED: ONDANSETRON PF 4 MG/2 ML VIAL. IV PRN (13:15)
[2021-03-26] MEDS ORDERED: OXYTOCIN 30 UNIT/500 ML PREMIX 500 ML IV PRN (13:15)
[2021-03-26] MEDS ORDERED: ZOLPIDEM 5 MG TABLET. PO PRN (13:15)
[2021-03-26] MEDS ORDERED: SIMETHICONE 80 MG TAB.CHEW PO PRN (13:15)
--- NOTE | 2021-03-26 13:31 | OP ---
DATE OF SURGERY: 03/26/2021 PREOPERATIVE DIAGNOSES: 1. A 39 weeks' intrauterine . 2. Previous section. 3. Desires bilateral tubal ligation. POSTOPERATIVE DIAGNOSES: 1. A 39 weeks' intrauterine . 2. Previous section. 3. Desires bilateral tubal ligation. PROCEDURES: Repeat low transverse section and bilateral tubal ligation. SURGEON: Aron Stern MD CERTIFIED NURSING ASSISTANT INSTRUCTOR: ____. ANESTHESIA: Spinal. ESTIMATED BLOOD LOSS: 500 mL. COMPLICATIONS: None. FINDINGS: Viable male , Apgars 8 and 9, weight 6 pounds 10 ounces, nuchal cord x 1. Three-vessel cord, placenta delivered manually intact. SUMMARY: A 20-year-old 2, para 1 at 39 weeks', presented for repeat section and tubal ligation, voiced clear understanding of all risks of procedure as well as the risks for failure of the tubal ligation of less than 0.4%. DESCRIPTION OF PROCEDURE: The patient was taken to the surgery suite and placed in dorsal supine position. She was prepped with ChloraPrep and draped in a sterile fashion. After adequate anesthesia, a Pfannenstiel skin incision was made with a scalpel down to and through the fascia. The fascia was extended laterally using curved Jorge scissors. The superior edge of the fascia was grasped with two Lucio clamps, dissected free of the abdominal rectus muscle using blunt dissection along with Bovie cautery. The same process took place inferiorly. The abdominal rectus muscles were dissected bluntly at the midline. Peritoneum was grasped with 2 hemostats, entered sharply with Metzenbaum scissors. This incision was extended superiorly as well as inferiorly. The Jacob ring retractor was placed. A low transverse hysterotomy incision was made with a scalpel down to and through the amniotic sac. Hysterotomy incision was extended laterally and superiorly digitally. With aid of fundal pressure, the 's head was delivered in a smooth atraumatic manner. Nuchal cord x 1 was visualized and reduced. With additional fundal pressure, anterior shoulder was delivered, followed by posterior shoulder, rest of the male infant was delivered. Infant was suctioned with a bulb syringe orally and nasally. Umbilical cord was clamped twice and cut and a viable male infant was handed to waiting nursing staff. Umbilical cord blood was then obtained. Three-vessel cord, placenta was delivered manually intact. The uterus was then exteriorized and cleared of clot and debris with a moist lap. Hysterotomy incision was reapproximated using 1 Vicryl suture in a running locked fashion. The uterus palpated firm. Fallopian tubes and ovaries appeared normal bilaterally. The right fallopian tube was grasped with the Jayleen undermined in the mesosalpinx with Bovie cautery. Proximal and distal ends of the fallopian tube were tied with plain gut suture. Mid section of the fallopian tube was removed with the aid of Metzenbaum scissors. Two telescoping ends were visualized and hemostatic. The same process took place with the left adnexa. The posterior cul-de-sac was cleared of clot and debris with a moist lap. The uterus was then returned to the abdomen. Pericolic gutters were cleared of clot and debris with a moist lap. The hysterotomy incision was reviewed and hemostatic. The Jacob ring retractor was removed. The peritoneum was reapproximated using 1 Vicryl suture in a running fashion. Abdominal rectus muscles were reapproximated using 1 Vicryl suture in a running fashion. Fascia was reapproximated using Stratafix. Skin was reapproximated using a 4-0 Vicryl suture in a subcuticular manner. The patient tolerated the procedure well and was taken to recovery room in stable condition. Sponge and needle count correct x 3. KATERIN/LEVI DR: Elizabeth TID: [id number]
[2021-03-26] MEDS: KETOROLAC 30 MG/ML VIAL. IV PRN (15:38)
[2021-03-27 01:30] VITALS: BP 117/72
[2021-03-27] MEDS: KETOROLAC 30 MG/ML VIAL. IV PRN (01:55)
[2021-03-27 05:30] VITALS: BP 94/64
[2021-03-27 07:35] VITALS: BP 108/65
[2021-03-27 07:44] LABS: BASO % 0 % (0-3); EOS % 1 % (0-3); HEMATOCRIT 28.5 % (36.0-47.0); HEMOGLOBIN 9.1 g/dL (12.0-15.5); LYMPH # 1.2 x10^3/uL (1.0-4.8); LYMPH % 20 % (24-48); MEAN CORPUSCULAR HEMOGLOBIN 25 pg (25-35); MEAN CORPUSCULAR HGB CONC 32 g/dL (31-37); MEAN CORPUSCULAR VOLUME 78 fL (79-100); MONO # 0.5 x10^3/uL (0.0-1.1); MONO % 8 % (0-9); NEUT # 4.3 x10^3/uL (1.8-7.7); NEUT % 71 % (31-73); PLATELET COUNT 181 x10^3/uL (140-400); RED BLOOD COUNT 3.68 x10^6/uL (3.50-5.40); RED CELL DISTRIBUTION WIDTH 15.4 % (11.5-14.5)
[2021-03-27] MEDS: MULTIVITAMIN with MINERAL TABLET. PO SCH (08:09)
[2021-03-27] MEDS: DOCUSATE SODIUM 100 MG CAPSULE. PO PRN ×2 (08:09→16:36)
[2021-03-27] MEDS: oxyCODONE/APAP 5/325 1 TAB TABLET PO PRN ×4 (08:10→21:33)
[2021-03-27] MEDS: IBUPROFEN 400 MG TABLET. PO PRN ×2 (08:10→16:36)
[2021-03-27] MEDS: FERROUS SULFATE 325 MG TABLET. PO SCH ×2 (08:59→16:36)
--- NOTE | 2021-03-27 11:24 | PDOC ---
OB Progress Note Date of Service 03/27/21 Time of Evaluation 1120 Notes Pt. feeling well. Pain controlled. No complaints. Lab Laboratory Tests Test 03/26/21 10:30 03/26/21 10:50 03/27/21 07:30 Urine Collection Type Unknown Urine Color Yellow Urine Clarity Hazy Urine pH 6.5 (<5.0-8.0) Urine Specific [place] 1.025 (1.000-1.030) Urine Protein Negative mg/dL (NEG-TRACE) Urine Glucose (UA) Negative mg/dL (NEG) Urine Ketones (Stick) 40 mg/dL (NEG) Urine Blood Negative (NEG) Urine Nitrite Negative (NEG) Urine Bilirubin Negative (NEG) Urine Urobilinogen Dipstick 1.0 mg/dL (0.2 mg/dL) Urine Leukocyte Esterase Small (NEG) Urine RBC 1-2 /HPF (0-2) Urine WBC 5-10 /HPF (0-4) Urine Squamous Epithelial Cells Many /LPF Urine Bacteria Many /HPF (0-FEW) Urine Mucus Marked /LPF White Blood Count 4.7 x10^3/uL (4.0-11.0) 6.0 x10^3/uL (4.0-11.0) Red Blood Count 4.08 x10^6/uL (3.50-5.40) 3.68 x10^6/uL (3.50-5.40) Hemoglobin 10.3 g/dL (12.0-15.5) 9.1 g/dL (12.0-15.5) Hematocrit 31.4 % (36.0-47.0) 28.5 % (36.0-47.0) Mean Corpuscular Volume 77 fL (79-100) 78 fL (79-100) Mean Corpuscular Hemoglobin 25 pg (25-35) 25 pg (25-35) Mean Corpuscular Hemoglobin Concent 33 g/dL (31-37) 32 g/dL (31-37) Red Cell Distribution Width 15.3 % (11.5-14.5) 15.4 % (11.5-14.5) Platelet Count 197 x10^3/uL (140-400) 181 x10^3/uL (140-400) Treponema pallidum Antibody Nonreactive (Nonreactive) Neutrophils (%) (Auto) 71 % (31-73) Lymphocytes (%) (Auto) 20 % (24-48) Monocytes (%) (Auto) 8 % (0-9) Eosinophils (%) (Auto) 1 % (0-3) Basophils (%) (Auto) 0 % (0-3) Neutrophils # (Auto) 4.3 x10^3/uL (1.8-7.7) Lymphocytes # (Auto) 1.2 x10^3/uL (1.0-4.8) Monocytes # (Auto) 0.5 x10^3/uL (0.0-1.1) Eosinophils # (Auto) 0.0 x10^3/uL (0.0-0.7) Basophils # (Auto) 0.0 x10^3/uL (0.0-0.2) Laboratory Tests Test 03/27/21 07:30 White Blood Count 6.0 x10^3/uL (4.0-11.0) Red Blood Count 3.68 x10^6/uL (3.50-5.40) Hemoglobin 9.1 g/dL (12.0-15.5) Hematocrit 28.5 % (36.0-47.0) Mean Corpuscular Volume 78 fL (79-100) Mean Corpuscular Hemoglobin 25 pg (25-35) Mean Corpuscular Hemoglobin Concent 32 g/dL (31-37) Red Cell Distribution Width 15.4 % (11.5-14.5) Platelet Count 181 x10^3/uL (140-400) Neutrophils (%) (Auto) 71 % (31-73) Lymphocytes (%) (Auto) 20 % (24-48) Monocytes (%) (Auto) 8 % (0-9) Eosinophils (%) (Auto) 1 % (0-3) Basophils (%) (Auto) 0 % (0-3) Neutrophils # (Auto) 4.3 x10^3/uL (1.8-7.7) Lymphocytes # (Auto) 1.2 x10^3/uL (1.0-4.8) Monocytes # (Auto) 0.5 x10^3/uL (0.0-1.1) Eosinophils # (Auto) 0.0 x10^3/uL (0.0-0.7) Basophils # (Auto) 0.0 x10^3/uL (0.0-0.2) Medications Current Medications Ringer's Solution 1,000 ml @ 125 mls/hr Q8H PRN IV PER PROTOCOL Last administered on 03/26/21at 16:26; Start 03/26/21 at 10:30 Cefazolin Sodium/ Dextrose 50 ml @ 100 mls/hr 1X ONCE IV Last administered on 03/26/21at 11:42; Start 03/26/21 at 10:30; Stop 03/26/21 at 10:59; Status DC Citric Acid/ Sodium Citrate (Bicitra) 30 ml 1X ONCE PO Last administered on 03/26/21at 11:42; Start 03/26/21 at 11:45; Stop 03/26/21 at 11:46; Status DC Phenylephrine HCl (PHENYLEPHRINE in 0.9% NACL PF) 1 mg STK-MED ONCE IV ; Start 03/26/21 at 11:45; Stop 03/26/21 at 11:45; Status DC Oxytocin (Pitocin) 10 unit STK-MED ONCE .ROUTE ; Start 03/26/21 at 11:45; Stop 03/26/21 at 11:45; Status DC Ephedrine Sulfate (ePHEDrine PF IN SALINE SYRINGE) 50 mg STK-MED ONCE IV ; Start 03/26/21 at 11:45; Stop 03/26/21 at 11:45; Status DC Morphine Sulfate (Morphine Preservative Free) 10 mg STK-MED ONCE .ROUTE ; Start 03/26/21 at 11:45; Stop 03/26/21 at 11:45; Status DC Metoclopramide HCl (Reglan Vial) 10 mg STK-MED ONCE .ROUTE ; Start 03/26/21 at 12:41; Stop 03/26/21 at 12:41; Status DC Sodium Chloride (Normal Saline Flush) 3 ml QSHIFT PRN IV AFTER MEDS AND BLOOD DRAWS; Start 03/26/21 at 13:15 Oxytocin 500 ml @ 125 mls/hr CONT PRN IV EXCESSIVE POST- BLEEDING; Start 03/26/21 at 13:15; Stop 03/26/21 at 21:14; Status DC Ibuprofen (Motrin) 800 mg PRN Q8HRS PRN PO INFLAMMATION Last administered on 03/27/21at 08:10; Start 03/26/21 at 13:15 Ondansetron HCl (Zofran) 4 mg PRN Q6HRS PRN IV NAUSEA/VOMITING Last administered on 03/26/21at 21:42; Start 03/26/21 at 13:15 Docusate Sodium (Colace) 100 mg PRN BID PRN PO HARD STOOLS Last administered on 03/27/21at 08:09; Start 03/26/21 at 13:15 Al Hydroxide/Mg Hydroxide (Mylanta Plus Xs) 30 ml PRN Q4HRS PRN PO HEARTBURN / GAS; Start 03/26/21 at 13:15 Simethicone (Gas-X) 80 mg PRN AFTMEALHC PRN PO GAS / BLOATING; Start 03/26/21 at 13:15 Diphenhydramine HCl (Benadryl Oral Elixir) 12.5 mg PRN Q6HRS PRN PO ITCHING; Start 03/26/21 at 13:15 Ferrous Sulfate (Feosol) 325 mg BIDWMEALS PO Last administered on 03/27/21at 08:59; Start 03/26/21 at 17:00 Zolpidem Tartrate (Ambien) 5 mg PRN QHS PRN PO INSOMNIA, MAY REPEAT X1; Start 03/26/21 at 13:15 Oxycodone/ Acetaminophen (Percocet 5/325) 2 tab PRN Q4HRS PRN PO MODERATE PAIN, SEVERE PAIN Last administered on 03/27/21at 08:10; Start 03/26/21 at 13:15 Ketorolac Tromethamine (Toradol 30mg Vial) 30 mg PRN Q6HRS PRN IV INFLAMMATION/PAIN Last administered on 03/27/21at 01:55; Start 03/26/21 at 13:15; Stop 03/31/21 at 13:14 Multivitamins (Thera M Plus) 1 tab DAILY PO Last administered on 03/27/21at 08:09; Start 03/27/21 at 09:00 Active Scripts Active Cephalexin 500 Mg Tablet 1 Tab PO BID 5 Days Zofran (Ondansetron Hcl) 4 Mg Tablet 1 Tab PO PRN Q6-8HRS Macrobid 100 Mg Capsule (Nitrofurantoin Monohyd/M-Cryst) 100 Mg Capsule 1 Cap PO BID 5 Days Prenata Chewable Tablet ( Vit37/Iron/Folic Acid) 1 Each Tab.chew 1 Tab PO DAILY 30 Days Tylenol With Codeine #3 Tablet (Acetaminophen/Codeine Phosphate) 1 Each Tablet 1 Tab PO PRN Q6HRS PRN MDD 4 Tablet(s) 7 Days Dok (Docusate Sodium) 100 Mg Capsule 100 Mg PO PRN BID PRN Ibuprofen 400 Mg Tablet 400 Mg PO PRN Q4HRS PRN Keflex (Cephalexin) 500 Mg Capsule 1 Cap PO BID Macrobid 100 Mg Capsule (Nitrofurantoin Monohyd/M-Cryst) 100 Mg Capsule 1 Cap PO BID 7 Days Cephalexin 500 Mg Tablet 1 Tab PO BID Flagyl (Metronidazole) 500 Mg Tablet 1 Tab PO BID Proair Hfa (Albuterol Sulfate) 8.5 Gm Hfa.aer.ad 1 Puff INH PRN Q6HRS PRN Medrol (Methylprednisolone) 4 Mg Tab.ds.pk 1 Pkg PO UD Reported Proair Hfa (Albuterol Sulfate) 8.5 Gm Hfa.aer.ad 1 Puff INH PRN PRN Tylenol Extra Strength (Acetaminophen) 500 Mg Tablet 1,000 Mg PO PRN PRN Vitamins ( Vits W-Ca,Fe,Fa(<1MG)) 1 Each Tablet 1 Tab PO DAILY Exam Abd: soft, mild tenderness, fundus firm Incision site: clean, dry and intact Assessment POD#1 s/p repeat c/s and BTL Plan of Care: Continue current Tx, Mgmt ZULEIMA MORGAN Jr, MD Mar 27, 2021 11:24
[2021-03-27 12:00] VITALS: BP 92/49
[2021-03-27 16:30] VITALS: BP 100/60
[2021-03-27 20:11] VITALS: BP 106/61
[2021-03-28] MEDS: IBUPROFEN 400 MG TABLET. PO PRN ×3 (02:35→23:19)
[2021-03-28 06:37] VITALS: BP 107/65
[2021-03-28 08:10] VITALS: BP 107/68
[2021-03-28] MEDS: DOCUSATE SODIUM 100 MG CAPSULE. PO PRN ×3 (08:37→23:18)
[2021-03-28] MEDS: MULTIVITAMIN with MINERAL TABLET. PO SCH (08:37)
[2021-03-28] MEDS: FERROUS SULFATE 325 MG TABLET. PO SCH ×2 (08:37→16:30)
[2021-03-28] MEDS: oxyCODONE/APAP 5/325 1 TAB TABLET PO PRN ×3 (08:38→17:09)
--- NOTE | 2021-03-28 11:32 | PDOC ---
OB Progress Note Date of Service 03/28/21 Time of Evaluation 1130 Notes Pt. feeling well. No complaints. Lab Laboratory Tests Test 03/27/21 07:30 White Blood Count 6.0 x10^3/uL (4.0-11.0) Red Blood Count 3.68 x10^6/uL (3.50-5.40) Hemoglobin 9.1 g/dL (12.0-15.5) Hematocrit 28.5 % (36.0-47.0) Mean Corpuscular Volume 78 fL (79-100) Mean Corpuscular Hemoglobin 25 pg (25-35) Mean Corpuscular Hemoglobin Concent 32 g/dL (31-37) Red Cell Distribution Width 15.4 % (11.5-14.5) Platelet Count 181 x10^3/uL (140-400) Neutrophils (%) (Auto) 71 % (31-73) Lymphocytes (%) (Auto) 20 % (24-48) Monocytes (%) (Auto) 8 % (0-9) Eosinophils (%) (Auto) 1 % (0-3) Basophils (%) (Auto) 0 % (0-3) Neutrophils # (Auto) 4.3 x10^3/uL (1.8-7.7) Lymphocytes # (Auto) 1.2 x10^3/uL (1.0-4.8) Monocytes # (Auto) 0.5 x10^3/uL (0.0-1.1) Eosinophils # (Auto) 0.0 x10^3/uL (0.0-0.7) Basophils # (Auto) 0.0 x10^3/uL (0.0-0.2) Medications Current Medications Ringer's Solution 1,000 ml @ 125 mls/hr Q8H PRN IV PER PROTOCOL Last administered on 03/26/21at 16:26; Start 03/26/21 at 10:30 Cefazolin Sodium/ Dextrose 50 ml @ 100 mls/hr 1X ONCE IV Last administered on 03/26/21at 11:42; Start 03/26/21 at 10:30; Stop 03/26/21 at 10:59; Status DC Citric Acid/ Sodium Citrate (Bicitra) 30 ml 1X ONCE PO Last administered on 03/26/21at 11:42; Start 03/26/21 at 11:45; Stop 03/26/21 at 11:46; Status DC Phenylephrine HCl (PHENYLEPHRINE in 0.9% NACL PF) 1 mg STK-MED ONCE IV ; Start 03/26/21 at 11:45; Stop 03/26/21 at 11:45; Status DC Oxytocin (Pitocin) 10 unit STK-MED ONCE .ROUTE ; Start 03/26/21 at 11:45; Stop 03/26/21 at 11:45; Status DC Ephedrine Sulfate (ePHEDrine PF IN SALINE SYRINGE) 50 mg STK-MED ONCE IV ; Start 03/26/21 at 11:45; Stop 03/26/21 at 11:45; Status DC Morphine Sulfate (Morphine Preservative Free) 10 mg STK-MED ONCE .ROUTE ; Start 03/26/21 at 11:45; Stop 03/26/21 at 11:45; Status DC Metoclopramide HCl (Reglan Vial) 10 mg STK-MED ONCE .ROUTE ; Start 03/26/21 at 12:41; Stop 03/26/21 at 12:41; Status DC Sodium Chloride (Normal Saline Flush) 3 ml QSHIFT PRN IV AFTER MEDS AND BLOOD DRAWS; Start 03/26/21 at 13:15 Oxytocin 500 ml @ 125 mls/hr CONT PRN IV EXCESSIVE POST- BLEEDING; Start 03/26/21 at 13:15; Stop 03/26/21 at 21:14; Status DC Ibuprofen (Motrin) 800 mg PRN Q8HRS PRN PO INFLAMMATION Last administered on 03/28/21at 02:35; Start 03/26/21 at 13:15 Ondansetron HCl (Zofran) 4 mg PRN Q6HRS PRN IV NAUSEA/VOMITING Last administered on 03/26/21at 21:42; Start 03/26/21 at 13:15 Docusate Sodium (Colace) 100 mg PRN BID PRN PO HARD STOOLS Last administered on 03/28/21at 08:37; Start 03/26/21 at 13:15 Al Hydroxide/Mg Hydroxide (Mylanta Plus Xs) 30 ml PRN Q4HRS PRN PO HEARTBURN / GAS; Start 03/26/21 at 13:15 Simethicone (Gas-X) 80 mg PRN AFTMEALHC PRN PO GAS / BLOATING Last administered on 03/28/21at 01:21; Start 03/26/21 at 13:15 Diphenhydramine HCl (Benadryl Oral Elixir) 12.5 mg PRN Q6HRS PRN PO ITCHING; Start 03/26/21 at 13:15 Ferrous Sulfate (Feosol) 325 mg BIDWMEALS PO Last administered on 03/28/21at 08:37; Start 03/26/21 at 17:00 Zolpidem Tartrate (Ambien) 5 mg PRN QHS PRN PO INSOMNIA, MAY REPEAT X1; Start 03/26/21 at 13:15 Oxycodone/ Acetaminophen (Percocet 5/325) 2 tab PRN Q4HRS PRN PO MODERATE PAIN, SEVERE PAIN Last administered on 03/28/21at 08:38; Start 03/26/21 at 13:15 Ketorolac Tromethamine (Toradol 30mg Vial) 30 mg PRN Q6HRS PRN IV INFLAMMATION/PAIN Last administered on 03/27/21at 01:55; Start 03/26/21 at 13:15; Stop 03/31/21 at 13:14 Multivitamins (Thera M Plus) 1 tab DAILY PO Last administered on 03/28/21at 08 :37; Start 03/27/21 at 09:00 Active Scripts Active Cephalexin 500 Mg Tablet 1 Tab PO BID 5 Days Zofran (Ondansetron Hcl) 4 Mg Tablet 1 Tab PO PRN Q6-8HRS Macrobid 100 Mg Capsule (Nitrofurantoin Monohyd/M-Cryst) 100 Mg Capsule 1 Cap PO BID 5 Days Prenata Chewable Tablet ( Vit37/Iron/Folic Acid) 1 Each Tab.chew 1 Tab PO DAILY 30 Days Tylenol With Codeine #3 Tablet (Acetaminophen/Codeine Phosphate) 1 Each Tablet 1 Tab PO PRN Q6HRS PRN MDD 4 Tablet(s) 7 Days Dok (Docusate Sodium) 100 Mg Capsule 100 Mg PO PRN BID PRN Ibuprofen 400 Mg Tablet 400 Mg PO PRN Q4HRS PRN Keflex (Cephalexin) 500 Mg Capsule 1 Cap PO BID Macrobid 100 Mg Capsule (Nitrofurantoin Monohyd/M-Cryst) 100 Mg Capsule 1 Cap PO BID 7 Days Cephalexin 500 Mg Tablet 1 Tab PO BID Flagyl (Metronidazole) 500 Mg Tablet 1 Tab PO BID Proair Hfa (Albuterol Sulfate) 8.5 Gm Hfa.aer.ad 1 Puff INH PRN Q6HRS PRN Medrol (Methylprednisolone) 4 Mg Tab.ds.pk 1 Pkg PO UD Reported Proair Hfa (Albuterol Sulfate) 8.5 Gm Hfa.aer.ad 1 Puff INH PRN PRN Tylenol Extra Strength (Acetaminophen) 500 Mg Tablet 1,000 Mg PO PRN PRN Vitamins ( Vits W-Ca,Fe,Fa(<1MG)) 1 Each Tablet 1 Tab PO DAILY Exam Abd: soft, non tender, fundus firm Incision site: clean, dry and intact Assessment POD#2 s/p repeat c/s and BTL Plan of Care: Continue current Tx, Mgmt ZULEIMA MORGAN Jr, MD Mar 28, 2021 11:32
[2021-03-28 14:00] VITALS: BP 111/68
[2021-03-28 19:30] VITALS: BP 96/53
[2021-03-28 23:30] VITALS: BP 99/64
[2021-03-29] MEDS: oxyCODONE/APAP 5/325 1 TAB TABLET PO PRN ×2 (02:33→10:29)
[2021-03-29 03:00] VITALS: BP 100/54
[2021-03-29 09:26] VITALS: BP 117/77
--- NOTE | 2021-03-29 10:23 | PDOC3 ---
OB DISCHARGE SUMMARY DATE OF ADMISSION: 03/26/21 DATE OF DISCHARGE: 03/29/21 REASON FOR ADMISSION: section INTRAPARTUM PROCEDURES: : Low Cerv Trans PROCEDURES: Tubal Ligation DISCHARGE DIAGNOSIS: Term Delivered DISCHARGE INFORMATION: Activity (ad kennedy), Diet (regular), Medications, Instructions (pelvic rest x 6 wks, no driving x 2 wks, no lifting > 20 lbs. x 6 wks) HOSPITAL COURSE Term gestation delivered via repeat section and bilateral tubal ligation without complications. ZULEIMA MORGAN Jr, MD Mar 29, 2021 10:23
[2021-03-29] MEDS ORDERED: DOCU-153 PO (10:26)
[2021-03-29] MEDS ORDERED: OXYC1TAB15 PO (10:26)
[2021-03-29] MEDS ORDERED: IBUP-1027 PO (10:26)
--- NOTE | 2021-03-29 10:27 | DISCH ---
DISCHARGE INSTRUCTIONS Condition on Discharge Condition on Discharge: Stable Activity After Discharge Activity Instructions for Disc: Activity as tolerated Bathing Instructions: Shower-keep dressing dry Lifting Instructions after Dis: No heavy lifting, No pulling or pushing, Do not lift >10 pounds Exercise Instruction after Dis: Progress as tolerated Driving Instructions after Dis: No driving for 2 weeks Diet after Discharge Diet after Discharge: Regular Diet Texture: Regular Liquid Texture: Thin Liquid Swallowing Supervision: None needed Wound Incision Care Wound/Incision Care: May get incision wet Contacting the DRAngie after DC Call your doctor for: Concerns you may have Follow-Up Follow up with: Dr. Stern in 2 wks Treatment/Equipment after DC Adaptive Equipment Issued: None ZULEIMA STERN Jr, MD Mar 29, 2021 10:27
[2021-03-29] MEDS: MULTIVITAMIN with MINERAL TABLET. PO SCH (10:29)
[2021-03-29] MEDS: FERROUS SULFATE 325 MG TABLET. PO SCH (10:29)
[2021-03-29 11:56] VITALS: BP 121/79
--- NOTE | 2021-03-29 12:30 | NUR ---
Pt. was given verbal and written discharge instructions, fundus firm, scant amount of rubra vaginal flow, incision dry and intact with steri strips, escorted to hospital exit with family and NB. Pt. verbalized understanding of all discharge information given to her concerning NB and her discharge information.
--- NOTE | 2021-03-31 18:10 | PATHOLOGY ---
[facility] Accession Number: [id number] . 01 Material submitted: . PART A: fallopian tube - RIGHT FALLOPIAN TUBE. Modifiers: right PART B: fallopian tube - LEFT FALLOPIAN TUBE. Modifiers: left . 01 Clinical history: . C SECTION REPEAT C/S AND BTL GROSS AND MICRO . 02 Diagnosis: A. Right tubal ligation: - Segment of fallopian tube confirmed. . B. Left tubal ligation: - Segment of fallopian tube confirmed. (JPM:mml; 03/31/2021) QLM 03/31/2021 1733 Local . 02 Electronically signed: . Kt Arenas MD, Pathologist NPI- [id number] . 01 Gross description: . A. Fixative: Formalin Labeled: R fallopian tube Measurements: 1.1 cm in length x 0.7 cm in diameter Fimbriated: No External surface: [place] and smooth Cut surface: Pinpoint lumen A1 entire specimen . B. Fixative: Formalin Labeled: L fallopian tube Measurements: 1.2 cm in length x 0.6 cm in diameter Fimbriated: No External surface: [place] and smooth Cut surface: Pinpoint lumen B1 entire specimen ([facility]; 03/30/2021) SYC/SYC 03/30/2021 1842 Local . 02 Pathologist provided ICD-10: Z30.2 . 02 CPT . 929739, 110672 Specimen Comment: A courtesy copy of this report has been sent to [phone] Specimen Comment: Report sent to Performed at: [address], [place], [place] [id number] MD Dez Meade MD Phone: [phone] Performed at: 02 [facility] [address] [place], [place] [id number] MD Kt Arenas MD Phone: [phone]
== END 2021-03-29 12:30 | disposition home or self-care (01) | DRG 785 ==
LOC: 3 SO LND 10:08
PROVIDERS: ADMIT Obstetrics & Gynecology; ATTEND Obstetrics & Gynecology
PROC: 10D00Z1 Extraction of Products of Conception, Low, Open Approach (ICD-10-PCS; principal; 2021-03-26)
PROC: 0UB70ZZ Excision of Bilateral Fallopian Tubes, Open Approach (ICD-10-PCS; 2021-03-26)
DX: O34.211 Maternal care for low transverse scar from previous cesarean delivery (principal); O69.81X0 Labor and delivery complicated by cord around neck, without compression, not applicable or unspecified; Z3A.39 39 weeks gestation of pregnancy; Z37.0 Single live birth; Z30.2 Encounter for sterilization
CPT/HCPCS: 36415; 81001; 85025; 85027; 86592; 86850; 86900; 86901; 87086; 88302; C1755; J0690; J1885; J2274; J2370; J2405; J2590; J2765; J7120; G0378

== ENCOUNTER 2022-02-28 21:26 | Emergency (ER) | payer MEDICAID ==
[~2022-02-28] VITALS: Ht 157.5 cm; Wt 52.0 kg
[~2022-02-28 21:26] MED LIST changes: +DOCU-148 PO; -DOCU-153 PO; +OXYC1TAB15 PO
[2022-02-28 21:35] VITALS: BP 115/73
[2022-02-28 22:21] LABS: BACTERIA,URINE MANY /HPF (0-FEW); RBC,URINE OCC /HPF (0-2); WBC,URINE TNTC /HPF (0-4)
--- NOTE | 2022-02-28 23:12 | PHYS DOC ---
Past Medical History Past Medical History: Asthma Past Surgical History: , Tubal ligation Additional Past Surgical Histo: D&C Smoking Status: Never Smoker Alcohol Use: None Drug Use: None General Adult EDM: Chief Complaint: FLANK PAIN HPI: HPI: Patient is a 21 year old female patient presented to the ED today complaining of 5 out of 10 right-sided flank pain, symptoms of been going on intermittently for 2 weeks. Patient denies anything exacerbating or relieving the symptoms. Describes the pain as sharp. Denies any nausea, vomiting, pneumaturia. Reports history of UTIs and believes this could be a UTI presentation Review of Systems: Review of Systems: Constitutional: Denies fever or chills. [] Eyes: Denies change in visual acuity. [] HENT: Denies nasal congestion or sore throat. [] Respiratory: Denies cough or shortness of breath. [] Cardiovascular: Denies chest pain or edema. [] GI: Denies abdominal pain, nausea, vomiting, bloody stools or diarrhea. [] : Reports right flank pain Musculoskeletal: Denies back pain or joint pain. [] Integument: Denies rash. [] Neurologic: Denies headache, focal weakness or sensory changes. Psychiatric: Denies depression or anxiety. [] Heart Score: C/O Chest Pain: N/A Risk Factors: Risk Factors: DM, Current or recent (<one month) smoker, HTN, HLP, family history of CAD, obesity. Risk Scores: Score 0 - 3: 2.5% MACE over next 6 weeks - Discharge Home Score 4 - 6: 20.3% MACE over next 6 weeks - Admit for Clinical Observation Score 7 - 10: 72.7% MACE over next 6 weeks - Early Invasive Strategies Current Medications: Current Medications Medications (Trade) Dose Ordered Sig/Kristie Start Time Stop Time Status Last Admin Dose Admin Ceftriaxone Sodium (Rocephin Im) 1 gm 1X ONCE 02/28/22 23:30 02/28/22 23:31 Lidocaine HCl (Xylocaine-Mpf 1% 2ml Vial) 2 ml 1X ONCE 02/28/22 23:30 02/28/22 23:31 Allergies: Allergies: Allergies Coded Allergies Type Severity Reaction Last Updated Verified No Known Drug Allergies 11/21/18 No Physical Exam: PE: Constitutional: Well developed, well nourished, no acute distress, non-toxic appearance. [] HENT: Normocephalic, atraumatic, bilateral external ears normal, oropharynx moist, no oral exudates, nose normal. [] Eyes: PERRLA, EOMI, conjunctiva normal, no discharge. [] Neck: Normal range of motion, no tenderness, supple, no stridor. [] Cardiovascular:Heart rate regular rhythm, no murmur [] Lungs & Thorax: Bilateral breath sounds clear to auscultation [] Abdomen: Bowel sounds normal, soft, no tenderness, no masses, no pulsatile masses. [] Skin: Warm, dry, no erythema, no rash. [] Back: No tenderness, no CVA tenderness. [] Extremities: No tenderness, no cyanosis, no clubbing, ROM intact, no edema. [] Neurologic: Alert and oriented X 3, normal motor function, normal sensory function, no focal deficits noted. [] Psychologic: Affect normal, judgement normal, mood normal. [] Current Patient Data: Labs: Laboratory Tests Test 02/28/22 21:00 02/28/22 21:44 Urine Collection Type Unknown Urine Color (Auto) Yellow Urine Turbidity Hazy Urine pH (Auto) 8.0 (<5.0-8.0) Urine Specific [place] 1.022 (1.000-1.030) Urine Protein (Auto) Negative mg/dL (Negative) Urine Glucose (Auto)(UA) Negative mg/dL (Negative) Urine Ketones (Auto) Negative mg/dL (Negative) Urine Blood (Auto) Negative (Negative) Urine Nitrite Negative (Negative) Urine Bilirubin (Auto) Negative (Negative) Urine Urobilinogen (Auto) 2 mg/dL (Normal) Urine Leukocyte Esterase (Auto) Large (Negative) Urine RBC Occ /HPF (0-2) Urine WBC Tntc /HPF (0-4) Urine Squamous Epithelial Cells Many /LPF Urine Bacteria Many /HPF (0-FEW) Urine Mucus Mod /LPF POC Urine HCG, Qualitative Hcg negative (Negative) Vital Signs: Vital Signs Date Time Temp Pulse Resp B/P (MAP) Pulse Ox O2 Delivery O2 Flow Rate FiO2 02/28/22 21:35 98.7 85 18 115/73 (87) 99 Room Air 98.7 EKG: EKG: [] Radiology/Procedures: Radiology/Procedures: [] Course & Med Decision Making: Course & Med Decision Making Pertinent Labs and Imaging studies reviewed. (See chart for details) This a 21-year-old female patient presented to the ED today with right flank pain, symptoms began 2 weeks ago. Negative urine hCG, urine positive for UTI with large amount of leukocytes, too many to count WBCs. No blood. Given Rocephin IM in the ED, discharged on cephalexin. Instructed to push fluids. Tylenol or Motrin for pain or fever. Follow-up with PCP in 1 week, instructed to return to the ED at any point symptoms worsen Dragon Disclaimer: Dragon Disclaimer: This electronic medical record was generated, in whole or in part, using a voice recognition dictation system. Departure Departure Impression: Primary Impression: Urinary tract infection Qualified Codes: N39.0 - Urinary tract infection, site not specified Disposition: HOME / SELF CARE / HOMELESS Condition: STABLE Referrals: NO PCP (PCP) follow up with your doctor in 1-2 weeks Patient Instructions: Urinary Tract Infection Additional Instructions: You have urinary tract infection, take the prescribed antibiotics until completed. Please follow-up with your primary care doctor in the next 7 days, come back to the ED at any point symptoms worsen Scripts Cephalexin (CEPHALEXIN) 500 Mg Tablet 1 TAB PO BID, #14 TAB Prov: NICKI REID APRN 02/28/22 NICKI REID APRN February 28, 2022 23:12
[2022-02-28] MEDS ORDERED: cefTRIAXone IM 1 GM VIAL IM ONE (23:30)
[2022-02-28] MEDS ORDERED: LIDOCAINE 1% PF 2 ML VIAL. INJ ONE (23:30)
[2022-02-28] MEDS ORDERED: CEPH500T PO (23:30)
== END 2022-02-28 23:58 | disposition home or self-care (01) ==
LOC: ER 21:26
DX: N39.0 Urinary tract infection, site not specified (principal); J45.909 Unspecified asthma, uncomplicated; Z87.440 Personal history of urinary (tract) infections; Z98.890 Other specified postprocedural states; Z98.51 Tubal ligation status
CPT/HCPCS: 81001; 81025; 87077; 87086; 96372; 99283; J0696; J3490